=== PATIENT | female | born 1955 | race Caucasian/White ===

== ENCOUNTER 2025-07-29 07:42 | Emergency (ER) | payer MEDICARE, SELFPAY ==
--- OUTSIDE RECORDS SUMMARY | 2024-04-04 09:00 | XMS_ITS | Continuity of Care Document ---
Author Organization [facility] Address [address] [place] [address] Phone Care Team Providers Care Educational Adviser Name Role Phone Recknagel OD, Keith Unavailable Unavailable Allergies, Adverse Reactions, Alerts Substance Reaction Status Criticality No Known Allergies Active No Inform ation Medications Medication Instructions Dosage Effective Dates (start - stop) Status Comments estradiol 1 mg tablet Take 1 tablet ever y day - Active FIRST-Testosterone MC 2 % transdermal cream PRN - Active progesterone micronized 100 mg capsule Take 1 tablet at night - Active Procedures Procedure Date Refraction EST. Routine Exam Comprehensive 024 Refraction New Routine Exam Comprehensive 23 New Routine Exam Comprehensive 15 Advance Directives Directive Yes / No Effective Date File Name No Information Encounters Encounter Description Practice Location Reason(s) For Visit Diagnoses Date Provider Providers Copied on Encounter [facility], [address], [place], [place], [id number] , [place] tel:[phone] [facility] routine eye exam (chief complaint) Encounter for exam of eyes and vision w abnormal findingsPresbyop iaAge-related nuclear cataract, bilateral 4 Recknagel OD Keith. [address] [place], [address], [place]. tel:[phone] Referring Provider: Keith Keller OD Q, [address] [place], [address]. tel:[phone] [facility], [address], [place], [place], [id number] , [place] tel: [phone] [facility] comprehensive eye exam (chief complaint) Encounter for exam of eyes and vision w abnormal findingsPresbyop iaAge-related nuclear cataract, bilateral 3 Recknagel OD Keith. [address], [place], [address], [place]. tel:[phone] Referring Provider: Keith Recknagel OD Q, [address], [place], [address]. tel:[phone] [facility], [address], [place], [place], [id number] , [place] tel: [phone] [facility] routine exam (chief complaint) Eye & Vision ExaminationRefra ction Disorder NosSenile Nuclear Cataract 5 Agrawal OD David. [address], [place], [place], [id number], [place]. tel:[phone] Referring Provider: David Agrawal OD, [address], [place], [address] . tel:[phone] Family History Family Member Type Diagnosis Age At Onset No Information Payers Payer name Insurance type Covered libertarian ID Authordanaea kelly(s) [facility] [place] [employer] C are Claims CI [id number] Social History Type Description Quantity Date Captured Comments Alcohol Use Details No Caffeine Use Details No Tobacco Use Status Non-smoker Smoking Status Never smoker Non-Smoking Tobacco Use Details : No Details Available : No Details Available Sex Female Chief Complaint And Reason For Visit From encounter dated '04/04/2024 15:00'. routine eye exam (chief complaint). Description: The 68 year old female presents for routine eye exam in both eyes. Happy with vision and glasses from last year. Patient denies eye pain, flashes and floaters. Associated symptoms include: no changes in vision distance/near OU. Reason For Referral Reason For Referral No Information History Of Present Illness Encounter Date Complaint History Of Prese nt Illness routine eye exam The 68 year old female presents for routine eye exam in both eyes. Happy with vision and glasses from last year. Patient denies eye pain, flashes and floaters. Associated symptoms include: no changes in vision distance/near OU. comprehensive eye exam The 67 ye ar old female presents for comprehensive eye exam in both eyes. Patient reports decreased vision mostly at near OU. Patient denies eye pain, flashes and floaters. Last eye exam was 5 years ago. routine exam The 59 year old female presents for routine exam in both eyes. Patient reports blurred vision and difficulty reading with reading only rx with progression x 6 months. Last eye exam 3 years ago. Patient denies eye pain, flashes and floaters. Functional Status Date Functional Assessmen t No Information Instructions Date Instruction Additional Infor mation Encounter for examin ation of eyes and vision with abnormal findings, - Rx final glasses Rx. Monitor yearly for changes. Related to Encounter for examination of eyes and vision with abnormal findings Presbyopia, OU - Rx final glasses Rx. Monitor yearly for changes. Related to Presbyopia Age-related nuclear cataract, bilateral, OU - Educated pt on findings. No tx at this time as ADL's unaffected. Discussed possible effects of cataracts on vision and possible cataract surgery in future. Monitor yearly at this time or sooner if vision changes. Related to Age-related nuclear cataract, bilateral Patient education Related to Age -related nuclear cataract, bilateral Encounter for examin ation of eyes and vision with abnormal findings, - Rx final glasses Rx. Monitor yearly for changes. Related to Encounter for examination of eyes and vision with abnormal findings Presbyopia, OU - Rx final glasses Rx. Monitor yearly for changes. Related to Presbyopia Age-related nuclear cataract, bilateral, OU - Educated pt on findings. No tx at this time as ADL's unaffected. Discussed possible effects of cataracts on vision and possible cataract surgery in future. Monitor yearly at this time or sooner if vision changes. Related to Age-related nuclear cataract, bilateral Patient education Related to Age -related nuclear cataract, bilateral Routine Exam, Related to Routi ne Exam Refractive Error, OU - Patient was given up-to-date corrective glasses RX Related to Refractive Error Senile Nuclear Catar act, OU - Discussed catarcts with patient. No treatment required at this time. Recheck at annual eye exam. Related to Senile Nuclear Cataract Assessments Type Assessment Date No Information Patient Care Teams Name Effective Dates (start - stop) Status Members No Information
[2025-07-29 07:46] VITALS: BP 179/101; PULSE 92; RESP 16; TEMP 36.2; O2SAT 96
--- NOTE | 2025-07-29 07:50 | CT_ITS ---
WS: [id number] CTA HEAD AND NECK TECHNIQUE: Contrast enhanced CTA of the head and neck with coronal and sagittal reformatted images and maximum intensity projection (MIP) images. NASCET criteria utilized. CLINICAL INFORMATION: cva COMPARISON: None. DLP: 350.[address] scans at [facility] use at least one of these dose optimization techniques: automated exposure control; mA and/or kV adjustment per patient size (includes targeted exams where dose is matched to clinical indication); or iterative reconstruction. FINDINGS: RIGHT: No significant RIGHT ICA stenosis. RIGHT ICA is patent to the skull base. LEFT: LEFT common carotid artery is patent. No significant LEFT ICA stenosis. LEFT ICA is patent to the skull base. INTRACRANIAL CTA: LEFT dominant vertebral artery. Small but patent RIGHT vertebral artery. Basilar artery is patent. Persistent RIGHT MANAGER IMMUNOLOGY. Both ICAs are patent at the skull base. Normal vascularity to the DORIS and MCA territories bilaterally. No evidence of proximal flow-limiting stenosis. Proximal subclavian arteries are patent. Mild mucosal thickening in the paranasal sinuses. Mastoid air cells are well aerated. Normal parapharyngeal fat. CT/CT angio headneck* 88829/66749 IMPRESSION: 1. No significant cervical ICA stenosis. 2. No flow-limiting intracranial stenosis. 3. LEFT dominant vertebral artery. Both vertebral arteries are patent. Notified Marleny Lemus MD at 07/29/2025 8:47 AM.
--- NOTE | 2025-07-29 07:50 | XRR_ITS ---
PROCEDURE INFORMATION: Exam: XR Chest Exam date and time: 07/29/2025 8:02 AM Age: 69 years old Clinical indication: Other: Stroke like symptoms; Additional info: CVA TECHNIQUE: Imaging protocol: Radiologic exam of the chest. Views: 1 view. COMPARISON: No relevant prior studies available. FINDINGS: Lungs: Unremarkable. No consolidation. Pleural spaces: Unremarkable. No pleural effusion. No pneumothorax. Heart/Mediastinum: Unremarkable. No cardiomegaly. Bones/joints: Unremarkable. XR/XR chest 1V portable [id number] IMPRESSION: No acute findings.
--- NOTE | 2025-07-29 07:51 | CT_ITS ---
WS: [id number] CT HEAD NONCONTRAST HISTORY: Symptoms of acute stroke TECHNIQUE: Contiguous axial imaging performed through the brain. Bone and soft tissue windows. Sagittal and coronal reformats reviewed. All CT scans at [facility] use at least one of these dose optimization techniques: automated exposure control; mA and/or kV adjustment per patient size (includes targeted exams where dose is matched to clinical indication); or iterative reconstruction. DLP: 1261.19 mGy COMPARISON: None available. No acute intracranial hemorrhage, midline shift or mass effect. Mild atrophy with no prior infarcts. No significant white matter disease. There is also mild cerebellar atrophy. Ventricles: Normal size with no hydrocephalus. No inferior displacement of the cerebellar tonsils. Paranasal sinuses: Mild mucoperiosteal thickening in the RIGHT maxillary sinus. No air-fluid levels. Mastoid air cells: Well pneumatized. Calvarium and scalp: Skull is intact with no soft tissue edema or swelling. CT/CT head thrombolytic 80011 IMPRESSION: 1. No acute intracranial hemorrhage or edema. 2. Mild cerebral and cerebellar atrophy. 3. No prior infarct. Notified Marleny Lemus MD at 07/29/2025 8:05 AM.
--- OUTSIDE RECORDS SUMMARY | 2025-07-29 07:53 | XMS_ITS | Clinical Summary ---
Author Organization [facility] Address [address] [place] [address] Care Team Providers Care Tool Or Die Drawing Checker Name Role Phone DennisTato call Primary Care Provider [phone] Source Comments Some departments are not documenting in the electronic medical record. If you do not see the information that you expected, contact Release of Information in the Health Information Management department at [phone] for further assistance in locating additional records.[facility] Allergies Active Allergy Reactions Criticality Noted Date Comments Ragweed UNKNOWN Low 05/08/2025 Medications estradioL (ESTRACE) 2 mg tablet Take one tablet by mouth daily. Active progesterone, micronized (PROMETRIUM) 200 mg capsule TAKE 2 CAPSULES BY MOUTH EVERY NIGHT AT BEDTIME FOR 90 DAYS Active CONTRACT DESIGNER THYROID 30 mg (0.5 gr) tablet TAKE 1 TABLET BY MOUTH ONCE EVERY MORNING FOR 30 DAYS Active testosterone (FORTESTA) 10 mg/0.5 g per actuation transdermal gel every 24 hours. Active Active Problems Problem Noted Date Diagnosed Date Vaginal vault prolapse, posthysterectomy 025 Assessment & Plan (05/08/2025 3:47 PM CDT): - Management options were discussed for Stage 3 anterior-predominant post-hysterectomy vaginal prolapse including expectant management, conservative management (a pessary), and surgical management (obliterative vs reconstructive). - She is sexually active. - She has advanced prolapse and had a rapid recurrence after a chilkoot tissue repair in 08/2023. We discussed options for management. Given her relatively young age, physical activity, advanced prolapse, and rapid recurrence after a chilkoot tissue repair, she would likely benefit from a mesh-augmented surgery. We discussed her concerns and her sister's history. After further consideration, she would feel comfortable proceeding with mesh-augmented sacrocolpopexy. - A KAYLIE was signed to obtain records from her recent surgery at [facility] - She will follow up for urodynamics testing, cystourethroscopy and surgical consultation Urinary incontinence, mixed 05/08/2025 Assessment & Plan (05/08/2025 3:47 PM CDT): - Management options were discussed for mixed urinary incontinence including expectant, conservative (pelvic floor physical therapy, incontinence pessary), medical management and surgical management (synthetic midurethral sling, sacral neuromodulation, intravesicular botulinum toxin injections). - Behavioral modifications including monitoring fluid intake (goal 50-60 oz per day), avoidance of bladder irritants (caffeine, artificial sweeteners, acidic foods), timed voids, and avoidance of excessive fluid intake before bedtime were reviewed. - A urine culture is being sent today to rule out a UTI as a possible cause of her symptoms. - She will incorporate the behavioral modifications discussed above. - She has had some kind of incontinence procedure where her bladder was tacked to her tailbone . A KAYLIE was signed to obtain records. She will follow up for urodynamics testing, cystourethroscopy, and surgical consultation Encounters Date Type Department Care Team Description 07/10/2025 Documentation [facility]gy[facility]cology: [facility] [address] [place] [address] Carmel Peterson MD 05/11/2025 Results Follow-Up Urogynecology: [facility] [address] [place] [address] Tia Foote PA-C POC URINE DIPSTICK AUTO READ, CULTURE-URINE W/SENSITIVITY, URINALYSIS, MICROSCOPIC 05/08/2025 1:45 PM CDT Office Visit Urogynecology: [facility] [address] [place] [address] Carmel Peterson MD Vaginal vault prolapse, posthysterectomy (Primary Dx); Urinary incontinence, mixed; Hematuria, unspecified type 05/08/2025 Prep for Case Urogynecology: [facility] [address] [facility] [place] [address] Carmel Peterson MD Vaginal vault prolapse, posthysterectomy (Primary Dx) 05/08/2025 Travel from Last 3 Months Surgical History Surgery Date Site/Laterality Comments OOPHORECTOMY 2023 ovaries were removed during first pelvic floor surgery BLADDER SURGERY 08/2023 pelvic floor reconstruction HX HYSTERECTOMY 08/2023 performed with pelvic floor reconstruction HX CYSTOCELE REPAIR 08/2023 performed with pelvic floor reconstruction Social History Tobacco Use Types Packs/Day Years Used Date Smoking Tobacco: Never Passive Smoke Exposure: Past Smokeless Tobacco: Never Tobacco Cessation:Counseling Given: Not Answered Alcohol Use Standard Drinks/Week Comments Yes 2 (1 standard drink = 0.6 oz pur e alcohol) AUDIT-C Answer Date Recorded Q1: How often do you have a drink containing alc ohol? 2-3 times a week 05/08/2025 Q2: How many drinks containi ng alcohol do you have on a typical day when you are drinking? 1 or 2 05/08/2025 Q3: How often do you have si x or more drinks on one occasion? Never 05/08/2025 PHQ-2 Answer Date Recorded PHQ-2 Score 0 05/08/2025 Alcohol Use Answer Date Recorded Alcohol Use Yes 05/08/2025 Male: 9+ ounces (15+ Standard Drinks) per week T hreshold Not on file 05/08/2025 Female: 4.8+ ounces (8+ Standard Drinks) per wee k Threshold 1.2 05/08/2025 Comments No Sex and Gender Information Value Date Recorded Sex Assigned at Not on file Legal Sex Female 3:17 PM CDT Gender Identity Not on file Sexual Orientation Not on file Last Filed Vital Signs Vital Sign Reading Time Taken Comments Blood Pressure 132/89 05/08/2025 1:25 PM CDT Pulse 89 05/08/2025 1:25 PM CDT Temperature 36.6 C (97.9 F) 05/08/2025 1:25 PM CDT Respiratory Rate 20 05/08/2025 1:25 PM CDT Oxygen Saturation 100% 05/08/2025 1:25 PM CDT Inhaled Oxygen Concentration - - Weight 55.6 kg (122 lb 9.6 oz) 05/08/2025 1:25 P M CDT Height 154.9 cm (5' 1 ) 05/08/2025 1:25 PM CDT Body Mass Index 23.17 05/08/2025 1:25 PM CDT Plan of Treatment Upcoming Encounters Date Type Department Care Team (Latest Contact Info) Description 11/10/2025 8:00 AM CDT Hospital Encounter Operating Room: [address] [id number] Carmel Peterson MD [address] [place] [address] Vaginal vault prolapse, posthysterectomy 11/10/2025 8:00 AM CDT - 11/10/2025 1:50 PM CDT Surgery Operating Room: [address] [address] Carmel Peterson MD [address] [place] [address] COLPOPEXY, ROBOT-ASSISTED, LAPAROSCOPIC Scheduled Procedures Name Priority Associated Diagnoses Date/Ti me COLPOPEXY, ROBOT-ASSISTED, LAPAROSCOPIC Vaginal vault prolapse, posthysterectomy 11/10/2025 8:00 AM CDT COLPORRHAPHY, POSTERIOR, FOR RECTOCELE REPAIR Vaginal vault prolapse, posthysterectomy 11/10/2025 8:00 AM CDT CREATION, URETHRAL SLING, OPEN Vaginal vault prolapse, posthysterectomy 11/10/2025 8:00 AM CDT CYSTOURETHROSCOPY Vaginal vault prolapse, posthysterectomy 11/10/2025 8:00 AM CDT Health Maintenance Due Date Last Done Comments ADVANCE CARE PLANNING DISCUSSION AND DOCUMENTATION 1957 MEDICARE ANNUAL WELLNESS VISIT 1957 DTAP/TDAP VACCINES (1 - Tdap) 10/11/1975 HEPATITIS C SCREENING 10/11/1975 PHYSICAL (COMPREHENSIVE) EXAM 10/11/1975 BREAST CANCER SCREENING 1997 COLORECTAL CANCER SCREENING 2002 PNEUMOCOCCAL VACCINE AGE 50 AND OVER (1 of 1 - PCV) 10/11/2007 SHINGLES RECOMBINANT VACCINE (1 of 2) 10/11/2007 OSTEOPOROSIS SCREENING/MONITORING 2022 INFLUENZA VACCINE (#1) 2025 3, 05/24/2022 COVID-19 VACCINE (2 - 2024-2 6 season) 2025 07/15/2021 RSV VACCINE (50 years and Older/ Women) (1 - 1-dose 75+ series) 2032 DEPRESSION SCREENING Completed 05/08/2025 HPV VACCINES Aged Out No longer eligi ble based on patient's age to complete this topic MENINGOCOCCAL B VACCINE Aged Out No l onger eligible based on patient's age to complete this topic Procedures Procedure Name Priority Date/Time Associated Diagnosis Comments WI GERONIMO POST-VOIDING RESIDUAL URINE&/BLADDER CAP Routine 05/08/2025 1:45 PM CDT Vaginal vault prolapse, posthysterectomy URINALYSIS, MICROSCOPIC Routine 05/08/2025 1:40 PM CDT Hematuria, unspecified type HC CULTURE-URINE Routine 05/08/2025 1:28 PM CDT Urinary incontinence, mixed POC URINE DIPSTICK AUTO READ Routine 05/08/2025 Urinary incontinence, mixed from Last 3 Months Results * WI GERONIMO POST-VOIDING RESIDUAL URINE&/BLADDER CAP (05/08/2025 1:45 PM CDT) Narrative IN CLINIC - 05/08/2025 1:45 PM CDT Milli [place], TONJA 05/08/2025 3:48 PM Within 10 minutes of voiding, a bladder scan was performed and showed a PVR of 17 mL. us Carmel Peterson MD AMB URINARY ORDERABLES Nancy ta Result IN CLINIC * (ABNORMAL) URINALYSIS, MICROSCOPIC (05/08/2025 1:40 PM CDT) WBCs,UA 0 - 2 None, 0 - 2 /HPF 05/08/2025 2:00 PM CDT [facility] RBCs,UA 2 - 10(A) None, 0 - 2 /HPF 05/08/2025 2:00 PM CDT [facility] Mucous,UA Trace None, Trace /LPF 05/08/2025 2:00 PM CDT [facility] Squamous Epithelial Cells 5 - 10(A) None, 0 - 2 , 2 - 5 /HPF 05/08/2025 2:00 PM CDT [facility] Urine MID-STREAM URINE SPECIMEN / Unknown Non-blood Collection / Unknown 05/08/2025 1:40 PM CDT 05/08/2025 1:48 PM CDT us Carmel Peterson MD URINE ORDERABLES Final Resu lt [facility] [address] [place] [address], * (ABNORMAL) CULTURE-URINE W/SENSITIVITY (05/08/2025 1:28 PM CDT) Urine Culture ESCHERICHIA COLI(A) 05/10/2025 7:09 AM CDT [facility] MB Urine Culture 10,000-100,000 CFU/mL Urogenital and/or skin esvin isolated 05/10/2025 7:09 AM CDT [facility] MB Urine MID-STREAM URINE SPECIMEN / Unknown Non-blood Collection / Unknown 05/08/2025 1:28 PM CDT 05/08/2025 1:48 PM CDT Narrative Organism Antibiotic Method Susceptibility Escherichia coli Ampicillin PATRICA (MCG/ML), INTERPRETATION, PHX <=4: Susceptible Escherichia coli Ampicillin/Sulbactam PATRICA (MCG/M L), INTERPRETATION, PHX 2/1: Susceptible Escherichia coli Cefazolin PATRICA (MCG/ML), INTERPRETATION, PHX <=1: Susceptible Escherichia coli Cefepime PATRICA (MCG/ML), INTERPRETATION, PHX <=1: Susceptible Escherichia coli Cefoxitin PATRICA (MCG/ML), INTERPRETATION, PHX <=4: Susceptible Escherichia coli Ceftriaxone PATRICA (MCG/ML), INTERPRETATION, PHX <=1: Susceptible Escherichia coli Ciprofloxacin PATRICA (MCG/ML), INTERPRETATION, PHX <=0.25: Susceptible Escherichia coli Gentamicin PATRICA (MCG/ML), INTERPRETATION, PHX <=2: Susceptible Escherichia coli Levofloxacin PATRICA (MCG/ML), INTERPRETATION, PHX <=0.5: Susceptible Escherichia coli Nitrofurantoin PATRICA (MCG/ML), INTERPRETATION, PHX <=16: Susceptible Escherichia coli Piperacillin/Tazobactam PATRICA (MC G/ML), INTERPRETATION, PHX <=2/4: Susceptible Escherichia coli Tobramycin PATRICA (MCG/ML), INTERPRETATION, PHX <=2: Susceptible Escherichia coli Trimethsulfa PATRICA (MCG/ML), INTERPRETATION, PHX <=0.5/9.5: Susceptible Carmel Peterson MD MICROBIOLOGY ORDERABLES Fin al Result Performing Organization Address City/[facility] Co de Phone Number [facility] PATH AND LAB MEDICINE [address] [address], * (ABNORMAL) POC URINE DIPSTICK AUTO READ (05/08/2025) Urine Glucose POC Negative Negative IN CLINIC Urine Bilirubin POC Negative Negative IN CLINIC Urine Ketone POC Negative Negative IN CLINIC Urine Specific [place] POC 1.020 1.003 - 1.035 IN CLINIC Urine Blood POC Trace(A) Negative IN CLINIC Urine PH POC 6.0 5 - 8 IN CLINIC Urine Protein POC Negative Negative IN CLINIC Urine Urobilinogen POC 0.2 0.2, 1.0 IN CLINIC Urine Nitrite POC Negative Negative IN CLINIC Urine Leukocytes POC Negative Negative IN CLINIC Urine Color POC Yellow Yellow, Colorless, Pale Yellow, Natalie IN CLINIC Urine Turbidity POC Slightly Cloudy(A) Clear IN CLINIC Urine (Clean Catch) 05/08/2025 Carmel Peterson MD POINT OF CARE TESTING Final Result IN CLINIC from Last 3 Months Insurance [facility] MEDICARE REPLACEMENT - LIFE1 Care Teams Tool Or Die Drawing Checker Relationship Specialty Start Date End Date Tato Collins DO [address] [place] [address] PCP - General Family Medicine 02/26/25
--- OUTSIDE RECORDS SUMMARY | 2025-07-29 07:53 | XMS_ITS | Patient Health Record ---
Author Organization [facility] Billing Info Address [address] [place] [id number] Phone [phone] Care Team Providers Care Hotel Reservationist Name Role Phone Tato Collins DO Primary Care Provider Unavailab ANNY Bermudez DO Unavailable [phone] Allergies Allergen (clinical drug ingredient) Drug/Non Drug Allergy documented on EMR Reaction Allergy Type Onset Date Status Ragweed Unknown Allergy Active Reason For Referral No Information Medications Medication SIG (Take, Route, Frequency, Duration) Notes Start Date End Date Diagnosis (ICD Code) Status Flomax 0.4 MG Capsule 1 capsule Orally Once a day; Duration: 30 day(s) 3 Not-Taking Progesterone 100 MG Capsule as directed Orally unsure of strength Active Testosterone 10 MG/ACT (2%) Gel 1 pump to skin in the morning to the thighs Transdermal Once a day unsure of strength Active Estradiol 1 MG Tablet 1 tablet Orally Once a day; Duration: 30 day(s) unsure of strength Active Immunizations Status Vaccine Route Administration Date Visit Date Comments Administered zFLU 4V (FLUARIX DALE D), 6 MO+, NO PRES - ALL PAYORS Unknown 08/21/2022 Social History Tobacco Use: Social History Observation Description Date Details (start date - stop date) Never Smoker NA - NA Sex Observation Social History Observation Description Sex Observation Female Social History Social History Social Info Question Answer Notes Tobacco Status: Patient is a never smoker Alcohol Use: Patient uses alcohol Drinks per occasion: 1 Additional Details Category Social Info Options Details Social History Marital Status: Problems No Known Problems Plan Of Treatment No Information Insurance Providers Payer Name Payer Address Payer Phone Subscriber Number Group Number Insured Name Patient Relationship to Insured Coverage Start Date Coverage End Date [facility] MEDIC[facility] [id number] [address] [address] [place], [place] [id number] Rossana Arriola Self - patient is the insured [address] [employer] [address] [place], [place] [phone] Estefaniabeverly Rossana Self - patient is the insured Medical (General) History Surgical History Surgery Date(Month/Year) R wrist repair 2018 [facility] hysterectomy, anterio r/posterior colporrhaphy with possible graft. 08/2022 Hospitalization History Reason Date(Month/Year) Childbirth see surgical hx
--- OUTSIDE RECORDS SUMMARY | 2025-07-29 07:53 | XMS_ITS | Encounter Summary ---
Author Organization [facility] Address [address] [place] [address] Care Team Providers Care Emt Dispatcher Name Role Phone Tato Collins Primary Care Provider [phone] Encounter Details Date Type Department Care Team ([facility] Contact Info) Description 05/08/2025 Prep for Case Urogynecology: [facility] [address] [facility], [place] [address] Carmel Peterson MD [address] [place] [address] Vaginal vault prolapse, posthysterectomy (Primary Dx) Social History Tobacco Use Types Packs/Day Years Used Date Smoking Tobacco: Never Passive Smoke Exposure: Past Smokeless Tobacco: Never Alcohol Use Standard Drinks/Week Comments Yes 2 [...] on file Sexual Orientation Not on file documented as of this encounter Functional Status * Does the patient have a hearing impairment: Answer Date of Assessment Author No 05/08/2025 1:24 PM CDT Cesar Lat rallaura * Does the patient have a visual impairment: Answer Date of Assessment Author Yes 05/08/2025 1:24 PM CDT Cesar Lat ralle * Does the patient have impaired ambulation: Answer Date of Assessment Author No 05/08/2025 1:24 PM CDT Cesar Lat rallaura * Does the patient have an activity of daily living (ADL) impairment: Answer Date of Assessment Author No 05/08/2025 1:24 PM CDT Cesar Lat ralle * Does the patient have an instrumental activity of daily living (IADL) impairment: Answer Date of Assessment Author No 05/08/2025 1:24 PM CDT Cesar Lat feroz documented as of this encounter Mental Status * Does the patient have a cognitive impairment: Answer Entry Date Author No 05/08/2025 1:24 PM CDT Jerson Guerrero documented in this encounter Ordered Prescriptions Prescription Sig Dispense Quantity Refills Last Filled Start Date End Date PRESURGERY KIT CIndications:ERAS pre-surgical preparation Use as directed. CHG wipes (12) and Ensure PreSurgery (3). Indications: ERAS pre-surgical preparation 1 kit 05/08/2025 documented in this encounter Plan of Treatment Upcoming Encounters Date Type Department Care Team (Latest Contact Info) Description 11/10/2025 8:00 AM CDT Hospital Encounter Operating Room: [facility] [address] [facility] [address] [place] [address] Carmel Peterson MD [address] [place], [place] [phone] Vaginal vault prolapse, posthysterectomy 11/10/2025 8:00 AM CDT - 11/10/2025 1:50 PM CDT Surgery [facility] [address] [facility] [address] [place] [phone] Carmel Peterson MD [address] [place] [address] COLPOPEXY, ROBOT-ASSISTED, LAPAROSCOPIC Scheduled Procedures Name Priority Associated Diagnoses Date/Ti me COLPOPEXY, ROBOT-ASSISTED, LAPAROSCOPIC Vaginal vault prolapse, posthysterectomy 11/10/2025 8:00 AM CDT COLPORRHAPHY, POSTERIOR, FOR RECTOCELE REPAIR Vaginal vault prolapse, posthysterectomy 11/10/2025 8:00 AM CDT CREATION, URETHRAL SLING, OPEN Vaginal vault prolapse, posthysterectomy 11/10/2025 8:00 AM CDT CYSTOURETHROSCOPY Vaginal vault prolapse, posthysterectomy 11/10/2025 8:00 AM CDT documented as of this encounter Visit Diagnoses Diagnosis Vaginal vault prolapse, posthysterectomy- Primary Prolapse of vaginal vault after hysterectomy Vaginal vault prolapse, posthysterectomy Prolapse of vaginal vault after hysterectomy documented in this encounter Orders Case Request Count Last Ordered Date First Orde red Date CASE REQUEST FOR ERAS PATIENTS 1 05/08/2025 documented in this encounter Additional Health Concerns Assessment Noted Time A fall risk assessment has been complete d for the patient 05/08/2025 1:24 PM CDT PHQ-2 Depression Total Score: 0 05/08/20 25 1:24 PM CDT documented as of this encounter Care Teams Emt Dispatcher Relationship Specialty Start Date End Date Tato Collins DO [address] [facility] [address] [place] [address] PCP - General Family Medicine 02/26/25 documented as of this encounter
--- OUTSIDE RECORDS SUMMARY | 2025-07-29 07:53 | XMS_ITS | Patient Health Record ---
Author Organization [facility] Address [address] [place] [address] Care Team Providers Care Tape Recording Machine Operator Name Role Phone Avni Mejia Primary Care Provider Unavailabl e Paige Diaz Unavailable [phone] Tato Collins Unavailable Unavailable Reason For Referral Reason Referral to Dr. Rehan kelly for cystocele Diagnosis 1 Postmenopausal bleed ing (N95.0) Diagnosis 2 Female bladder prola pse (N81.10) Diagnosis 3 Cystocele (N81.10) Diagnosis 4 Enterocele (K46.9) Referral Organization [facility] Referring Provider First Name Paige Referring Provider Last Name Emily Referring Provider Speciality OB - Gynec ology Referred Provider [facility],, Urogynecology a nd Female Pelvic Medicine Referral Priority Routine Medications Medication SIG (Take, Route, Frequency, Duration) Notes Start Date End Date Status Estradiol 2 MG Tablet TAKE 1 TABLET BY M OUTH ONCE EVERY DAY Oral; Duration: 90 Days Active Testosterone Active Multi-Vitamin Active Fish Oil Active Progesterone 200 MG Capsule Oral; Duration: 90 Days 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 No Household: Social Info Question Answer Notes Household Marital status: Problems Problem Type SNOMED Code ICD Code Onset Dates Problem Status W/U Status Risk Notes Problem Cystocele (456195933) Cystocele (N81.10) Active confirmed Problem Postmenopausal bleeding (60552553) Postmenopausal bleeding (N95.0) Active confirmed Problem Osteopenia (357980545) Osteopenia (M85.80) Active confirmed Problem Endometrium thickened (finding) (286924140) Endometrial thickening on ultra sound (R93.8) Active confirmed Problem Midline cystocele (555569060) Female bladder prolapse (N81.10) Active confirmed Vital Signs Heart Rate 88 /min 02/16/2025 Blood pressure diastolic 95 mm Hg 02/16/2025 Height 5 ft 1 in in 02/16/2025 Blood pressure systolic 126 mm Hg 02/16/2025 Weight 122 lbs 02/16/2025 BMI 23.05 kg/m2 02/16/2025 Encounters Encounter Location Date Provider Diagnosis [facility] [address] [facility] [address] [place], [place] [phone] 02/16/2025 Paige Diaz Cystocele N81.10 and Enterocele K46.9 Assessments Encounter Date Diagnosis (ICD Code) Assessment Notes Treatment Notes Treatment Clinical Notes Section Notes 02/16/2025 Cystocele (ICD-10 - N81.10) I discussed the nature of her defects. Since she failed so quickly, I rec referral to a urogynocologist because she made need a vaginal vault suspension and bladder repair. She is agreeable with this plan 02/16/2025 Enterocele (ICD-10 - K46.9) 02/16/2025 Other Pelvic exam don e with concession manager in room Plan Of Treatment No Information Insurance Providers Payer Name Payer Address Payer Phone Subscriber Number Group Number Insured Name Patient Relationship to Insured Coverage Start Date Coverage End Date [facility] Medicare Avantage Choice [address] [address] [place] [phone] [id number] Rossana Arriola Self - patient is the insured Medical (General) History Medical History History ICD Code Osteopenia M85.80 vision problems (glasses) abnormal pap smear (precancereous cells had cryo in ) Endometrial thickening on ultra sound R9 3.8 Surgical History Surgery Date(Month/Year) cryosurgery wisdom teeth extraction 1974 TOTAL HYSTERECTOMY HYSTEROSCOPY, ABLATION REMOVAL OF OVARY(S) pelvic floor repair, [facility] 08/2022
--- OUTSIDE RECORDS SUMMARY | 2025-07-29 07:54 | XMS_ITS | Continuity of Care Document ---
Author Organization [facility] [facility], Main Office Address [address] [facility] [address] [place] [address] Assessment No assessment recorded. Plan of Treatment Reminders Order Date Submit Date Provider Last Modified By Organization Details Last Modified Time Details Appointments None recorded . Lab CBC w/ auto diff 025 05/15/20 [place] [facility], [address] [place], [address], 5 23:07:08 lipid panel, serum 025 05/15/20 [place] [facility], [address] [place], [address], 5 23:07:10 CMP, serum or plasma 025 05/15/20 [place] [facility], [address] [place], [address], 5 23:07:09 Referral None recorded . Procedures None recorded . Surgeries None recorded . Imaging None recorded . Medication Orders None recorded . Patient TargetsNo targets recorded. Patient Instructions Encounter Date Encounter Id Patient Instructions Last Modified By Organization Details Last Modified Time 05/15/2025 [id number] The patient has her mammogram scheduled Colorectal cancer screen up to date [email or web address] Not available 05/15/2025 10:09:13 Reason for Referral None Reported. Results Created Date Observation Date Name Description Value Unit Range Abnormal Flag Note LastModifiedBy Organization Detail LastModifiedTime 05/18/2005/18/2025 CBC WITH DIFFE RENTI AL/PL ATELE T WBC 6.9 x10e3 /uL 3.4-10 .8 normal Not Available [facility] ([facility]) [address] [place], [address], 05/18/2025 23:07:08 05/18/20 25 05/18/2025 CBC WITH DIFFE RENTI AL/PL ATELE T RBC 4.06 x10e6 /uL 3.77-5 .28 normal Not Available [facility] ([facility]) [address] [place], [address], 05/18/2025 23:07:08 05/18/20 25 05/18/2025 CBC WITH DIFFE RENTI AL/PL ATELE T hemoglobin 13.3 g/dL 11.1-1 5.9 normal Not Available [facility] ([facility]) [address] [place], [address], 05/18/2025 23:07:08 05/18/20 25 05/18/2025 CBC WITH DIFFE RENTI AL/PL ATELE T hematocrit 38.9 % 34.0-4 6.6 normal Not Available [facility] ([facility]) [address] [place], [address], 05/18/2025 23:07:08 05/18/20 25 05/18/2025 CBC WITH DIFFE RENTI AL/PL ATELE T MCV 96 fL 79-97 normal Not Available [facility] ([facility]) [address] [place], [address], 05/18/2025 23:07:08 05/18/20 25 05/18/2025 CBC WITH DIFFE RENTI AL/PL ATELE T MCH 32.8 pg 26.6-3 3.0 normal Not Available [facility] ([facility]) [address] [place], [address], 05/18/2025 23:07:08 10/20/05/18/2025 CBC WITH DIFFE RENTI AL/PL ATELE T MCHC 34.2 g/dL 31.5-3 5.7 normal Not Available [facility] ([facility]) [address] [place], [address], 05/18/2025 23:07:08 05/18/20 25 05/18/2025 CBC WITH DIFFE RENTI AL/PL ATELE T RDW 12.5 % 11.7-1 5.4 Not Available [facility] ([facility]) [address] [place], [address], 05/18/2025 23:07:08 05/18/2005/18/2025 CBC WITH DIFFE RENTI AL/PL ATELE T platelets 370 x10e3 /uL 150-45 0 normal Not Available [facility] ([facility]) [address] [place], [address], 05/18/2025 23:07:08 05/18/20 25 05/18/2025 CBC WITH DIFFE RENTI AL/PL ATELE T neutrophils 50 % not estab. normal Not Available [facility] ([facility]) [address] [place], [address], 05/18/2025 23:07:08 05/18/20 25 05/18/2025 CBC WITH DIFFE RENTI AL/PL ATELE T lymphs 40 % not estab. normal Not Available [facility] ([facility]) [address] [place], [address], 05/18/2025 23:07:08 05/18/20 25 05/18/2025 CBC WITH DIFFE RENTI AL/PL ATELE T monocytes 6 % not estab. normal Not Available [facility] ([facility]) [address] [place], [address], 05/18/2025 23:07:08 05/18/20 25 05/18/2025 CBC WITH DIFFE RENTI AL/PL ATELE T eos 3 % not estab. normal Not Available [facility] ([facility]) [address] [place], [address], 05/18/2025 23:07:08 05/18/20 25 05/18/2025 CBC WITH DIFFE RENTI AL/PL ATELE T basos 1 % not estab. normal Not Available [facility] ([facility]) [address] [facility], [place], [address], 05/18/2025 23:07:08 05/18/20 25 05/18/2025 CBC WITH DIFFE RENTI AL/PL ATELE T immature cells BILINGUAL MEDICAL RECEPTIONIST Not Available [facility] ([facility]) [address] [place], [address], 05/18/2025 23:07:08 05/18/20 25 05/18/2025 CBC WITH DIFFE RENTI AL/PL ATELE T neutrophils (absolute) 3.4 x10e3 /uL 1.4-7. 0 normal Not Available [facility] ([facility]) [address] [place], [address], 05/18/2025 23:07:08 05/18/20 25 05/18/2025 CBC WITH DIFFE RENTI AL/PL ATELE T lymphs (absolute) 2.8 x10e3 /uL 0.7-3. 1 normal Not Available [facility] ([facility]) [address] [place], [address], 05/18/2025 23:07:08 05/18/20 25 05/18/2025 CBC WITH DIFFE RENTI AL/PL ATELE T monocytes(ab solute) 0.4 x10e3 /uL 0.1-0. 9 normal Not Available [facility] ([facility]) [address] [place], [address], 05/18/2025 23:07:08 05/18/20 25 05/18/2025 CBC WITH DIFFE RENTI AL/PL ATELE T eos (absolute) 0.2 x10e3 /uL 0.0-0. 4 normal Not Available [facility] ([facility]) [address] [place], [address], 05/18/2025 23:07:08 05/18/20 25 05/18/2025 CBC WITH DIFFE RENTI AL/PL ATELE T baso (absolute) 0.1 x10e3 /uL 0.0-0. 2 normal Not Available [facility] ([facility]) [address] [facility], [place], [address], 05/18/2025 23:07:08 05/18/20 25 05/18/2025 CBC WITH DIFFE RENTI AL/PL ATELE T immature granulocytes 0 % not estab. Not Available [facility] ([facility]) [address] [place], [address], 05/18/2025 23:07:08 05/18/20 25 05/18/2025 CBC WITH DIFFE RENTI AL/PL ATELE T immature grans (abs) 0.0 x10e3 /uL 0.0-0. 1 Not Available [facility] ([facility]) [address] [place], [address], 05/18/2025 23:07:08 05/18/20 25 05/18/2025 CBC WITH DIFFE RENTI AL/PL ATELE T NRBC BILINGUAL MEDICAL RECEPTIONIST Not Available [facility] ([facility]) [address] [place], [address], 05/18/2025 23:07:08 05/18/20 25 05/18/2025 CBC WITH DIFFE RENTI AL/PL ATELE T hematology comments: BILINGUAL MEDICAL RECEPTIONIST Not Available [facility] ([facility]) [address] [place], [address], 05/18/2025 23:07:08 05/18/20 25 05/18/2025 COMP. METAB OLIC PANEL (14) glucose 115 mg/dL 70-99 above high normal Not Available [facility] ([facility]) [address] [place], [address], 05/18/2025 23:07:09 05/18/20 25 05/18/2025 COMP. METAB OLIC PANEL (14) BUN 13 mg/dL 8-27 normal Not Available [facility] ([facility]) [address] [place], [address], 05/18/2025 23:07:09 05/18/20 25 05/18/2025 COMP. METAB OLIC PANEL (14) creatinine 0.73 mg/dL 0.57-1 .00 normal Not Available [facility] ([facility]) [address] [place], [address], 05/18/2025 23:07:09 05/18/20 25 05/18/2025 COMP. METAB OLIC PANEL (14) eGFR 90 mL/mi n/1.7 3 >59 normal Not Available [facility] ([facility]) [address] [place], [address], 05/18/2025 23:07:09 05/18/20 25 05/18/2025 COMP. METAB OLIC PANEL (14) BUN/creatini ne ratio 18 12-28 normal Not Available [facility] ([facility]) [address] [place], [address], 05/18/2025 23:07:09 05/18/20 25 05/18/2025 COMP. METAB OLIC PANEL (14) sodium 136 mmol/ L 134-14 4 normal Not Available [facility] ([facility]) [address] [place], [address], 05/18/2025 23:07:09 05/18/20 25 05/18/2025 COMP. METAB OLIC PANEL (14) potassium 4.2 mmol/ L 3.5-5. 2 normal Not Available [facility] ([facility]) [address] [place], [address], 05/18/2025 23:07:09 05/18/20 25 05/18/2025 COMP. METAB OLIC PANEL (14) chloride 102 mmol/ L 96-106 normal Not Available [facility] ([facility]) [address] [place], [address], 05/18/2025 23:07:09 05/18/20 25 05/18/2025 COMP. METAB OLIC PANEL (14) carbon dioxide, total 20 mmol/ L 20-29 normal Not Available [facility] ([facility]) [address] [place], [address], 05/18/2025 23:07:09 05/18/20 25 05/18/2025 COMP. METAB OLIC PANEL (14) calcium 9.5 mg/dL 8.7-10 .3 normal Not Available [facility] ([facility]) [address] [place], [address], 05/18/2025 23:07:09 05/18/20 25 05/18/2025 COMP. METAB OLIC PANEL (14) protein, total 6.7 g/dL 6.0-8. 5 normal Not Available [facility] ([facility]) [address] [place], [address], 05/18/2025 23:07:09 05/18/20 25 05/18/2025 COMP. METAB OLIC PANEL (14) albumin 4.2 g/dL 3.9-4. 9 normal Not Available [facility] ([facility]) [address] [place], [address], 05/18/2025 23:07:09 05/18/20 25 05/18/2025 COMP. METAB OLIC PANEL (14) globulin, total 2.5 g/dL 1.5-4. 5 Not Available [facility] ([facility]) [address] [facility] [place], [address], 05/18/2025 23:07:09 05/18/20 25 05/18/2025 COMP. METAB OLIC PANEL (14) bilirubin, total 0.4 mg/dL 0.0-1. 2 normal Not Available [facility] ([facility]) [address] [place], [address], 05/18/2025 23:07:09 05/18/20 25 05/18/2025 COMP. METAB OLIC PANEL (14) alkaline phosphatase 60 IU/L 49-135 normal Not Available [facility] ([facility]) [address] [place], [address], 05/18/2025 23:07:09 05/18/20 25 05/18/2025 COMP. METAB OLIC PANEL (14) AST (SGOT) 16 IU/L 0-40 normal Not Available [facility] ([facility]) [address] [place], [address], 05/18/2025 23:07:09 05/18/20 25 05/18/2025 COMP. METAB OLIC PANEL (14) ALT (SGPT) 10 IU/L 0-32 normal Not Available [facility] ([facility]) [address] [place], [address], 05/18/2025 23:07:09 05/18/20 25 05/18/2025 LIPID PANEL cholesterol, total 139 mg/dL 100-19 9 normal Not Available [facility] ([facility]) [address] [place], [address], 05/18/2025 23:07:10 05/18/20 25 05/18/2025 LIPID PANEL triglyceride s 123 mg/dL 0-149 normal Not Available [facility] ([facility]) [address] [place], [address], 05/18/2025 23:07:10 05/18/20 25 05/18/2025 LIPID PANEL HDL cholesterol 58 mg/dL >39 normal Not Available [facility] ([facility]) [address] [facility], [place], [address], 05/18/2025 23:07:10 05/18/20 25 05/18/2025 LIPID PANEL VLDL cholesterol luz 22 mg/dL 5-40 Not Available [facility] ([facility]) [address] [facility], [place], [address], 05/18/2025 23:07:10 05/18/20 25 05/18/2025 LIPID PANEL LDL chol calc ([facility]) 59 mg/dL 0-99 Not Available [facility] ([facility]) [address] [facility], [place], [address], 05/18/2025 23:07:10 05/18/20 25 05/18/2025 LIPID PANEL LDL calc comment: BILINGUAL MEDICAL RECEPTIONIST Not Available [facility] ([facility]) [address] [facility], [place], [address], 05/18/2025 23:07:10 05/20/20 25 05/20/2025 MAMMO , 3D rende ring No observ ation record ed. [email or web address] [facility] Dept [address], [place], [address], 05/25/2025 13:42:12 05/29/2005/29/2025 MAMMO , scree deb, bilat eral No observ ation record ed. [email or web address] [facility] [address], [place], [address], 06/01/2025 10:43:32 05/29/2005/29/2025 MAMMO , diagn ostic , unila teral No observ ation record ed. [facility] [address], [place], [address], 06/01/2025 10:43:33 Result Notes None recorded. Problems Name Problem SNOMED Code Status Onset Date Resolution Date Notes Provider Name and Address Organization Details Recorded Time Upper respiratory infection 26254975 Active 2023 PABLITO BRO, STORMY [address], [place], [address], [facility] 4 16:45:07 Cough 42387904 Active 2023 PABLITO BRO NP [address], [place], [address], [facility] 4 16:45:26 Fatigue 54171839 Active 2024 Lilibeth Torres NP [address], [place], [address], [facility] 5 10:40:15 Menopausal syndrome 637781176 Active 2024 Lilibeth Torres NP [address], [place], [address], [facility] 5 10:40:16 Notes:Some problems listed i n Document: #[id number] could not be added to this patient's chart. Please review this document and add these problems to the patient's chart manually as needed. Problem Notes None recorded. Procedures Surgical History Date Name Laterality Status Provider Name and Address Organization Details Recorded Time 09/11/19 23 reconstruction of pelvic floor completed Maryann Morejon [facility] 07/04/2023 15:39:54 07/30/19 16 Date of Last Pap Smear completed [facility] 10/04/2016 09:44:59 Imaging Results None recorded. Procedure Notes None recorded. Medical Equipment None Reported. Allergies Allergen ID Allergen Name Allergen Category Reaction Reaction Severity Criticality Documentation Date Start Date Code Code System Note Provider Name and Address Organization Details Recorded Time Bactrim medicatio n nausea severe low 07/04/2023 63039 9 RxNorm Maryann Morejon [facility] 3 17:58:49 4258 ragweed pollen environme nt Not available Not available Not available [facility]2016[facility] 09:[facility] Medications Name Sig Start Date Stop Date Status Note LastModified by Organization Details LastModified Time Bernice Randall (lipoderm) Topi-Click 20mg/gm 1 click nightly to external vaginal area 03/08 completed Called into [facility] 01/03/21 Not Available Not Available Not Available Testostero olimpia Topi-Click Vanishing Cream 20mg/gm APPLY 1 CLICK NIGHTLY TO EXTERNAL VAGINAL AREA 2019 active Not Available Not Available Not Avai lable compounded medication APPLY 1 CLICK (1/4 GRAM) TO EXTERNAL VAGINAL AREA DAILY. AVOID CONTACT FOR 4 HOURS. NEEDS APPT 05/30 completed Not Available Not Available Not Available compounded medication APPLY 1 CLICK (1/4 GRAM) TO EXTERNAL VAGINAL AREA DAILY. AVOID CONTACT FOR 4 HOURS. NEEDS APPT active Not Available Not Available No t Available compounded medication APPLY 1 CLICK (1/4 GRAM) EXTERNAL LY TO VAGINAL AREA NIGHTLY. AVOID CONTACT FOR 4 HOURS. active Not Available Not Available No t Available compounded medication Apply 1 click to external vaginal area daily 03/08 completed Not Available Not Available Not Available compounded medication APPLY 1 CLICK (1/4 gram=5mg ) TO INNER THIGH OR EXTERNAL GENITALI A ONCE DAILY. AVOID CONTACT FOR 4 HOURS. 2024 active Not Available Not Available Not Avai lable compounded medication APPLY 1 CLICK (1/4 GRAM) TO EXTERNAL VAGINAL AREA DAILY. AVOID CONTACT FOR 4 HOURS. NEEDS APPT active Not Available Not Available No t Available compounded medication APPLY 1 CLICK (1/4 GRAM) TO EXTERNAL VAGINAL AREA DAILY. AVOID CONTACT FOR 4 HOURS. NEEDS APPT 05/30 completed Not Available Not Available Not Available azithromyc in 250 mg tablet TAKE 2 TABLETS BY MOUTH TODAY, THEN TAKE 1 TABLET DAILY FOR 4 DAYS DIRECTED 05/15 completed Not Available Not Available Not Available hydrocodon e 5 mg-acetami nophen 325 mg tablet 11/27 completed Not Available Not Available Not Available prednisone 20 mg tablet 1 tab bid 11/27 completed Not Available Not Available Not Available prednisone 5 mg tablet Daily tapering dose 6-5-4-3- 2-1 stop 01/28 completed Not Available Not Available Not Available promethazi ne 6.25 mg-codeine 10 mg/5 mL syrup take 5 ML BY MOUTH EVERY 6 HOURS NEEDED 07/28 completed Not Available Not Available Not Available acetaminop hen 500 mg tablet TAKE 2 TABLETS BY MOUTH EVERY 8 HOURS 07/04 completed Not Available Not Available Not Available estradiol 1 mg tablet Take one tab WITH one 2mg tab, for total daily dose of 3mg 2024 active Not Available Not Available Not Avai lable progestero ne micronized 200 mg capsule TAKE 2 CAPSULES BY MOUTH EVERY NIGHT AT BEDTIME FOR 90 DAYS active Not Available Not Available No t Available olive oil 2 tbsp daily 05/30 completed Not Available Not Available Not Available estradiol 2 mg tablet Take one tab WITH one 1mg tab, for total daily dose of 3mg 2024 active Not Available Not Available Not Avai lable codeine 10 mg-guaifen esin 100 mg/5 mL oral liquid Take 5 mL every 4-6 hours by oral route as needed for 7 days. 08/01 completed Not Available Not Available Not Available estradiol 0.5 mg tablet TAKE 1 TABLET BY MOUTH EVERY DAY TAKE WITH 1MG TAB TO MAKE 1.5 MG//APPT NEEDED FOR FURTHER REFILLS 03/08 completed Not Available Not Available Not Available azelastine 137 mcg (0.1 %) nasal spray SPRAY 2 SPRAYS INTO EACH NOSTRIL TWICE A DAY NEEDED active Not Available Not Available No t Available ibuprofen 600 mg tablet TAKE 1 TABLET BY MOUTH EVERY 8 HOURS 05/30 completed Not Available Not Available Not Available methylpred nisolone 4 mg tablets in a dose pack TAKE 6 TABLETS ON DAY 1 DIRECTED ON PACKAGE AND DECREASE BY 1 TAB EACH DAY FOR A TOTAL OF 6 DAYS 05/15 completed Not Available Not Available Not Available Tussionex Pennkineti c ER 10 mg-8 mg/5 mL suspension ,extended release 1 tsp bid 11/27 completed Not Available Not Available Not Available ondansetro n 4 mg disintegra ting tablet Place 2 tablets twice a day by translin gual route as needed. 06/13 completed Not Available Not Available Not Available progestero ne micronized 100 mg capsule TAKE 1 CAP DAILY WITH THE 200 MG TO EQUAL 300 MGNEED S APPT 05/30 completed Not Available Not Available Not Available amoxicilli n 875 mg-potassi um clavulanat e 125 mg tablet TAKE 1 TABLET BY MOUTH EVERY 12 HOURS FOR 10 DAYS 05/30 completed Not Available Not Available Not Available Benadryl Allergy 25 mg tablet Take 1 tablet every day by oral route as needed. active allergi es/slee p Not Available Not Available Not Available nitrofuran toin monohydrat e/macrocry stals 100 mg capsule TAKE 1 CAPSULE BY MOUTH EVERY 12 HOURS WITH FOOD FOR 7 DAYS FOR GENITOUR INARY TRACT INFECTIO NS. active Not Available Not Available No t Available Vitamin C 2,000 mg at noon 03/08 completed Not Available Not Available Not Available betaine 1-2 capsules before meals 03/08 completed Not Available Not Available Not Available DHEA 50mg daily 05/30 completed Not Available Not Available Not Available Vitamin D 5,000 units daily/50 mcg active Not Available Not Available No t Available [place]-3 3,000 mg daily active Not Available Not Available No t Available multivitam in one daily active Not Available Not Available No t Available collagen 6mg 01/22 completed Not Available Not Available Not Available compounded medication 1 capsuls at bedtime 07/04 completed Not Available Not Available Not Available compounded medication 2 at noon 09/30 completed Not Available Not Available Not Available compounded medication Twice daily 09/30 completed Not Available Not Available Not Available compounded medication 1 scoop daily for 2 months 11/04 completed Not Available Not Available Not Available Probiotic 50 billion daily 07/04 completed Not Available Not Available Not Available BILINGUAL MEDICAL RECEPTIONIST Thyroid 30 mg tablet TAKE 1 TABLET BY MOUTH ONCE EVERY MORNING FOR 30 DAYS 05/22 completed Not Available Not Available Not Available BILINGUAL MEDICAL RECEPTIONIST Thyroid 60 mg tablet Take 1 tablet every day by oral route in the morning for 90 days. 2024 active Not Available Not Available Not Avai lable melatonin 10 mg tablet PRN active Not Available Not Available Not Available Vitamin B12 3000mcg active Not Available Not Available Not Available Shingrix (PF) 50 mcg/0.5 mL intramuscu lar suspension , kit 11/27 completed Not Available Not Available Not Available Fluzone Quad (PF) 60 mcg (15 mcg x 4)/0.5 mL IM syringe PHARMACY ADMINIST ERED DELTOID 07/28 completed Not Available Not Available Not Available Vitals Date Recorded Body height Body temperature Heart rate Body mass index (BMI) Body weight Oxygen saturation Systolic And Diastolic Provider Name and Address Organization Details Last Updated DateTime 5 157.48 cm 98.2 [degF] 73 /min 22.3 kg/m2 86281.2 7 g 98 % 149/83 mm[Hg] Rebeca Vasquez [facility] 5 09:30:13 Social History Question Answer Notes LastModified by Organizat ion Details LastModified Time Tobacco Smoking Status Never Smoker Maryann vang [facility] 07/04/2023 15:39:11 Do You Have An Advance Directive? Yes Information not available 07/04/2023 What Is Your Level Of Caffeine Consumption? Moderate Coffee Information not available 07/04/2023 What Was The Date Of Your Most Recent Tobacco Screening? 07/04/2023 Information not available 07/04/2023 Sex: Unknown Functional Status Question Answer Note LastModified by Organizat ion Details LastModified Time What is your level of alcohol consumption? Moderate light wine Information not available 07/04/2023 Are you able to walk independently without assistance or assistive devices? YESWOREST Information not available 07/04/2023 Mental Status None recorded. Family History Nothing Reported. Medical History Condition Response Urinary Tract Infections Y Gynecological History Statement/Question Response Abnormal Pap Y Date of Last Pap Smear 07/30/2015 Sexually Active? Y On BCP's at Conception? N Obstetrics History GPAL:G 0 P 0 0 0 0 Immunizations Vaccine Type Date Status Note Provider Nam e and Address Organization Details Recorded Time Influenza, split virus, quadrivalent, PF 05/24/2022 completed Tato Collins DO [address], [place], [address], [facility] 05/27/2022 23:08:57 COVID-19, mRNA, LNP-S, PF, 30 mcg/0.3 mL dose 07/15/2021 completed Lesly vang [facility] 07/19/2021 08:42:12 Past Encounters Encounter ID Performer Location Encounter Start Date Encounter Closed Date Diagnosis/Indication Diagnosis SNOMED-CT Code Diagnosis ICD10 Code Diagnosis IMO Codes Diagnosis Note [id number] Tato Collins, DO Main Office [address] [place] [address] 05/15/2025 09:06:06 05/19/2025 16:58:49 General examination of patient 739435292 Z00.00 159767 Menopausal syndrome 1237 07931 N95.1 18646 Health Concerns Section Related Observation LastModified by Organization Detai ls LastModified Time None Recorded Concern Status LastModified by Organization Details LastModified Time None Recorded Payers Encounter Date Sequence Insurance Name Policy Number Policy Platt Covered Member ID Platt Member ID Guarantor Name 05/15/2025 1 [facility] [place] (MEDICARE REPLACEMENT/A DVANTAGE - PPO) [id number] Rossana Arriola [id number] Rossana Arriola Notes Date Note Type Note Provider Name and Address Organization Details Recorded Time 05/15/2025 text/html ROS as noted in the HPI CC: Update and Physical, Saw doctor week ago, needs surgery for pelvic floor failure. Surgery set for September. HPI: Has not had physical in 2 years. Wants a whole blood panel. Upcoming pelvic floor surgery Menopausal - well managed. Taking hormones. Managing symptoms. Denies flushing or headache Heart Issues - BP: 149/83 during visit. Last visit with urogynocologits reports normal BP.PMH: Menopausal symptomsPSH: Pelvic floor - 2023, Wrist fracture 8798WZ0: Works out 3 times/w, walks daily, lift weights. 7-8 hours/night. 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
--- OUTSIDE RECORDS SUMMARY | 2025-07-29 07:54 | XMS_ITS | Data Portability ---
Author Organization [place] Alana Decker [facility], [employer] Address [address] [place] [address] Assessment Encounter Date Assessment Date Assessment LastModified by Organization Details LastModified Time 07/04/2023 07/04/2023 Patient presente d to office today for their Medicare Annual Wellness Visit. Education was provided on healthy nutrition, including a diet rich in fruits and vegetables, minimizing simple carbohydrates, salt, and saturated fats. Encouraged regular cardiovascular exercise such as walking at least 30 minutes daily, 5 times per week. Emphasized preventive health measures and educated pt on fall prevention and community-based lifestyle interventions to help reduce health risks and promote healthy living. Not available 07/04/2023 15:34:16 Plan of Treatment Reminders Order Date Submit Date Provider Last Modified By Organization Details Last Modified Time Details Appointments None recorded. Lab CBC w/ auto diff 2024 025 MIC [facility], [address] [place], [address], 5 23:07:08 lipid panel, serum 2024 025 MIC [facility], [address] [place], [address], 5 23:07:10 CMP, serum or plasma 2024 025 MIC [facility], [address] [place], [address], 5 23:07:09 estradiol, serum 2024 025 MIC [facility], [address], [place], [address], 5 13:08:18 progesteron e, serum 2024 025 MIC [facility], [address], [place], [address], 13:08:19 testosteron e, free + total, serum 2024 025 MIC [facility], [address], [place], [address], 13:08:18 TSH + free T4, serum 2024 025 MIC [facility], [address], [place], [address], 13:08:17 T3, free, serum or plasma 2024 025 MIC [facility], [address], [place], [address], 13:08:19 TSH + free T4, serum 2024 025 [facility], [address], [place], [address], 19:07:48 T3, free, serum or plasma 2024 025 MIC [facility], [address], [place], [address], 5 19:07:54 estradiol, serum 2024 025 MIC [facility], [address], [place], [address], 5 19:07:51 progesteron e, serum 2024 025 MIC [facility], [address] , [place], [address], 5 19:07:53 dhea-sulfat e, serum 2024 025 [facility], [address], [place], [address], 5 19:07:50 testosteron e, free + total, serum 2024 025 [facility], [address] [place], [address], 5 19:07:50 Referral None recorded. Procedures None recorded. Surgeries None recorded. Imaging thermogram, breast 2024 [facility], [address] [place], [address], 17:33:45 Medication Orders estradiol 2 mg tablet 2024 025 [facility]acy #[id number], [address] [place], [address], 10:35:06 progesteron e micronized 200 mg capsule 2024 025 [facility]acy #[id number], [address] [place], [address], 10:35:06 compounded medication 2024 025 [facility], [address] [place] [address], [address], 10:35:08 [employer]OC[employer]AILER Thyroid 30 mg tablet [email or web address]/Pharmacy #[id number], [address] [place], [address], 17:52:59 Medrol (Jovanny) 4 mg tablets in a dose pack [email or web address] [facility]/Pharmacy #[id number], [address] [place], [address], 09:30:41 azithromyci n 250 mg tablet [email or web address] [facility]acy #[id number], [address] [place], [address], 09:30:33 Patient TargetsNo targets recorded. Patient Instructions Encounter Date Encounter Id Patient Instructions Last Modified By Organization Details Last Modified Time 01/22/2025 [id number] Finish antibioti c until gone. Increase fluid intake and rest. Take an OTC antihistamine (Zyrtec, Claritin, Mel) daily. Sinus/normal saline nasal rinses with distilled water as needed. OTC Nasal spray (i.e., Flonase/Sensimist, Nasacort, etc) as needed. Decongestant as needed - Sudafed daily or if you have high blood pressure you can take Coricidin HBP. Vaporizer/cool mist humidifier at bedside. Tylenol or Ibuprofen as needed. Warm salt water gargles as needed for sore throat. Increase Vitamin C and Zinc 50 mg as needed to boost immune system. Follow up in 3 days if symptoms persist, sooner if they worsen. 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 [email or web address] Not available 01/22/2025 13:14:03 02/13/2025 [id number] *Pt sent home wi th the BHRT booklet and was encouraged to skim through and highlight questions for us to discuss in greater detail at her follow up in 2 weeks* -Discussed the risks, benefits, and expected outcomes of hormone replacement therapy. This includes, but isn't limited to: >> Black box warning for estradiol discussed regarding cardiovascular risks, endometrial, and breast cancer. >> The importance of annual mammogram screening while taking hormones; patient agrees. >> The off label use of prescribed testosterone is being prescribed to treat symptoms of fatigue, lack of motivation, weight gain, low libido. --Pt understands side effects of acne, unwanted hair growth, and swelling. >> The risk of transference with application of testosterone cream; education given regarding no contact for 4 hours after application and to wash hands thoroughly after applying. >> The off label use of prescribed progesterone is being prescribed to treat symptoms of irritability, poor sleep, mental fog, decrease in memory, anxiety and depression. Adequate time allowed to address questions and concerns. The pt verbalizes understanding of risks and agrees with plan of care. She is also encouraged to notify the clinic if/when additional questions or concerns arise [email or web address] Not available 02/13/2025 10:20:59 05/15/2025 [id number] The patient has her mammogram scheduled Colorectal cancer screen up to date [email or web address] Not available 05/15/2025 10:09:13 Reason for Referral None Reported. Results Created Date Observation Date Name Description Value Unit Range Abnormal Flag Note LastModifiedBy Organization Detail LastModifiedTime 01/23/2001/26/2025 TSH+F REE T4 TSH 2.180 uIU/m L 0.450- 4.500 normal Not Available [facility] ([facility]) [address] [place], [address], 01/26/2025 19:07:48 01/23/2001/26/2025 TSH+F REE T4 T4,free(dire ct) 0.89 NG/dL 0.82-1 .77 normal Not Available [facility] ([facility]) [address] [place], [address], 01/26/2025 19:07:48 01/23/20 25 01/25/2025 TESTO STERO NE,FR EE AND TOTAL free testosterone (direct) 0.4 pg/mL 0.0-4. 2 Not Available [facility] ([facility]) [address] [place], [address], 01/26/2025 19:07:49 01/23/20 25 01/26/2025 TESTO STERO NE,FR EE AND TOTAL testosterone 25 NG/dL 3-67 normal Not Available [facility] ([facility]) [address] [place], [address], 01/26/2025 19:07:49 01/23/20 25 01/26/2025 DHEA- SULFA TE DHEA-sulfate 51.6 ug/dL 20.4-1 86.6 normal Not Available [facility] ([facility]) [address] [place], [address], 01/26/2025 19:07:50 01/23/20 25 01/26/2025 ESTRA DIOL estradiol 23.4 pg/mL 0.0-54 .7 normal Adult Femal e Range Folli cular phase 12.5 - 166.0 Ovula tion phase 85.8 - 498.0 Lutea l phase 43.8 - 211.0 Postm enopa usal <6.0 - 54.7 Pregn estela 1st trime ster 215.0 - >4300 .0 Mac ECLIA metho dolog y Not Available [facility] ([facility]) [address], [place], [address], 01/26/2025 19:07:51 01/23/20 25 01/26/2025 PROGE STERO NE progesterone 0.2 NG/mL normal Folli cular phase 0.1 - 0.9 Lutea l phase 1.8 - 23.9 Ovula tion phase 0.1 - 12.0 Pregn ant First trime ster 11.0 - 44.3 Secon d trime ster 25.4 - 83.3 Third trime ster 58.7 - 214.0 Postm enopa usal 0.0 - 0.1 Not Available [facility] ([facility]) [address] [place], [address], 01/26/2025 19:07:53 01/23/20 25 01/26/2025 TRIIO DOTHY FLORY E (T3), FREE triiodothyro nine (T3), free 1.8 pg/mL 2.0-4. 4 below low normal Not Available [facility] ([facility]) [address], [place], [address], 01/26/2025 19:07:54 05/18/2005/18/2025 CBC WITH DIFFE RENTI AL/PL ATELE T WBC 6.9 x10e3 /uL 3.4-10 .8 normal Not Available [facility] ([facility]) [address], [place], [address], 05/18/2025 23:07:08 05/18/20 25 05/18/2025 CBC WITH DIFFE RENTI AL/PL ATELE T RBC 4.06 x10e6 /uL 3.77-5 .28 normal Not Available [facility] ([facility]) [address], [place], [address], 05/18/2025 23:07:08 05/18/20 25 05/18/2025 CBC WITH DIFFE RENTI AL/PL ATELE T hemoglobin 13.3 g/dL 11.1-1 5.9 normal Not Available [facility] ([facility]) [address] [place], [address], 05/18/2025 23:07:08 05/18/20 25 05/18/2025 CBC WITH DIFFE RENTI AL/PL ATELE T hematocrit 38.9 % 34.0-4 6.6 normal Not Available [facility] ([facility]) [address] [place], [address], 05/18/2025 23:07:08 05/18/20 25 05/18/2025 CBC WITH DIFFE RENTI AL/PL ATELE T MCV 96 fL 79-97 normal Not Available [facility] ([facility]) [address] [place], [address], 05/18/2025 23:07:08 05/18/20 25 05/18/2025 CBC WITH DIFFE RENTI AL/PL ATELE T MCH 32.8 pg 26.6-3 3.0 normal Not Available [facility] ([facility]) [address], [place], [address], 05/18/2025 23:07:08 05/18/20 25 05/18/2025 CBC WITH DIFFE RENTI AL/PL ATELE T MCHC 34.2 g/dL 31.5-3 5.7 normal Not Available [facility] ([facility]) [address], [place], [address], 05/18/2025 23:07:08 05/18/20 25 05/18/2025 CBC WITH DIFFE RENTI AL/PL ATELE T RDW 12.5 % 11.7-1 5.4 Not Available [facility] ([facility]) [address], [place], [address], 05/18/2025 23:07:08 05/18/20 25 05/18/2025 CBC WITH DIFFE RENTI AL/PL ATELE T platelets 370 x10e3 /uL 150-45 0 normal Not Available [facility] ([facility]) [address] [place], [address], 05/18/2025 23:07:08 05/18/20 25 05/18/2025 CBC WITH DIFFE RENTI AL/PL ATELE T neutrophils 50 % not estab. normal Not Available [facility] ([facility]) [address] [place], [address], 05/18/2025 23:07:08 05/18/20 25 05/18/2025 CBC WITH DIFFE RENTI AL/PL ATELE T lymphs 40 % not estab. normal Not Available [facility] ([facility]) [address] [place], [address], 05/18/2025 23:07:08 05/18/20 25 05/18/2025 CBC WITH DIFFE RENTI AL/PL ATELE T monocytes 6 % not estab. normal Not Available [facility] ([facility]) [address] [place], [address], 05/18/2025 23:07:08 05/18/20 25 05/18/2025 CBC WITH DIFFE RENTI AL/PL ATELE T eos 3 % not estab. normal Not Available [facility] ([facility]) [address] [place], [address], 05/18/2025 23:07:08 05/18/20 25 05/18/2025 CBC WITH DIFFE RENTI AL/PL ATELE T basos 1 % not estab. normal Not Available [facility] ([facility]) [address] [place], [address], 05/18/2025 23:07:08 05/18/20 25 05/18/2025 CBC WITH DIFFE RENTI AL/PL ATELE T immature cells [employer]AILER Not Available [facility] ([facility]) [address] [place], [address], 05/18/2025 23:07:08 05/18/20 25 05/18/2025 CBC WITH DIFFE RENTI AL/PL ATELE T neutrophils (absolute) 3.4 x10e3 /uL 1.4-7. 0 normal Not Available [facility] ([facility]) [address] [place], [address], 05/18/2025 23:07:08 05/18/20 25 05/18/2025 CBC WITH DIFFE RENTI AL/PL ATELE T lymphs (absolute) 2.8 x10e3 /uL 0.7-3. 1 normal Not Available [facility] ([facility]) [address] [place], [address], 05/18/2025 23:07:08 05/18/20 25 05/18/2025 CBC WITH DIFFE RENTI AL/PL ATELE T monocytes(ab solute) 0.4 x10e3 /uL 0.1-0. 9 normal Not Available [facility] ([facility]) [address] [place], [address], 05/18/2025 23:07:08 05/18/20 25 05/18/2025 CBC WITH DIFFE RENTI AL/PL ATELE T eos (absolute) 0.2 x10e3 /uL 0.0-0. 4 normal Not Available [facility] ([facility]) [address], [place], [address], 05/18/2025 23:07:08 05/18/20 25 05/18/2025 CBC WITH DIFFE RENTI AL/PL ATELE T baso (absolute) 0.1 x10e3 /uL 0.0-0. 2 normal Not Available [facility] ([facility]) [address], [place], [address], 05/18/2025 23:07:08 05/18/20 25 05/18/2025 CBC WITH DIFFE RENTI AL/PL ATELE T immature granulocytes 0 % not estab. Not Available [facility] ([facility]) [address], [place], [address], 05/18/2025 23:07:08 05/18/20 25 05/18/2025 CBC WITH DIFFE RENTI AL/PL ATELE T immature grans (abs) 0.0 x10e3 /uL 0.0-0. 1 Not Available [facility] ([facility]) [address] [place], [address], 05/18/2025 23:07:08 05/18/20 25 05/18/2025 CBC WITH DIFFE RENTI AL/PL ATELE T NRBC [employer] DETAILER Not Available [facility] ([facility]) [address] [place], [address], 05/18/2025 23:07:08 05/18/20 25 05/18/2025 CBC WITH DIFFE RENTI AL/PL ATELE T hematology comments: AUTOC[employer] DETAILER Not Available [facility] ([facility]) [address] [place], [address], 05/18/2025 23:07:08 05/18/20 25 05/18/2025 COMP. METAB OLIC PANEL (14) glucose 115 mg/dL 70-99 above high normal Not Available [facility] ([facility]) [address], [place], [address], 05/18/2025 23:07:09 05/18/20 25 05/18/2025 COMP. METAB OLIC PANEL (14) BUN 13 mg/dL 8-27 normal Not Available [facility] ([facility]) [address], [place], [address], 05/18/2025 23:07:09 05/18/20 25 05/18/2025 COMP. METAB OLIC PANEL (14) creatinine 0.73 mg/dL 0.57-1 .00 normal Not Available [facility] ([facility]) [address], [place], [address], 05/18/2025 23:07:09 05/18/20 25 05/18/2025 COMP. METAB OLIC PANEL (14) eGFR 90 mL/mi n/1.7 3 >59 normal Not Available [facility] ([facility]) [address], [place], [address], 05/18/2025 23:07:09 05/18/20 25 05/18/2025 COMP. METAB OLIC PANEL (14) BUN/creatini ne ratio 18 12-28 normal Not Available [facility] ([facility]) [address], [place], [address], 05/18/2025 23:07:09 05/18/20 25 05/18/2025 COMP. METAB OLIC PANEL (14) sodium 136 mmol/ L 134-14 4 normal Not Available [facility] ([facility]) [address], [place], [address], 05/18/2025 23:07:09 05/18/20 25 05/18/2025 COMP. METAB OLIC PANEL (14) potassium 4.2 mmol/ L 3.5-5. 2 normal Not Available [facility] ([facility]) [address] [place], [address], 05/18/2025 23:07:09 05/18/20 25 05/18/2025 COMP. METAB OLIC PANEL (14) chloride 102 mmol/ L 96-106 normal Not Available [facility] ([facility]) [address] [place], [address], 05/18/2025 23:07:09 05/18/20 25 05/18/2025 COMP. METAB OLIC PANEL (14) carbon dioxide, total 20 mmol/ L 20-29 normal Not Available [facility] ([facility]) [address], [place], [address], 05/18/2025 23:07:09 05/18/20 25 05/18/2025 COMP. METAB OLIC PANEL (14) calcium 9.5 mg/dL 8.7-10 .3 normal Not Available [facility] ([facility]) [address] [place], [address], 05/18/2025 23:07:09 05/18/20 25 05/18/2025 COMP. METAB OLIC PANEL (14) protein, total 6.7 g/dL 6.0-8. 5 normal Not Available [facility] ([facility]) [address] [place], [address], 05/18/2025 23:07:09 05/18/20 25 05/18/2025 COMP. METAB OLIC PANEL (14) albumin 4.2 g/dL 3.9-4. 9 normal Not Available [facility] ([facility]) [address] [place], [address], 05/18/2025 23:07:09 05/18/20 25 05/18/2025 COMP. METAB OLIC PANEL (14) globulin, total 2.5 g/dL 1.5-4. 5 Not Available [facility] ([facility]) [address] [place], [address], 05/18/2025 23:07:09 05/18/20 25 05/18/2025 COMP. METAB OLIC PANEL (14) bilirubin, total 0.4 mg/dL 0.0-1. 2 normal Not Available [facility] ([facility]) [address] [place], [address], 05/18/2025 23:07:09 05/18/20 25 05/18/2025 COMP. METAB OLIC PANEL (14) alkaline phosphatase 60 IU/L 49-135 normal Not Available [facility] ([facility]) [address] [place], [address], 05/18/2025 23:07:09 05/18/20 25 05/18/2025 COMP. METAB OLIC PANEL (14) AST (SGOT) 16 IU/L 0-40 normal Not Available [facility] ([facility]) [address] [place], [address], 05/18/2025 23:07:09 05/18/20 25 05/18/2025 COMP. METAB OLIC PANEL (14) ALT (SGPT) 10 IU/L 0-32 normal Not Available [facility] ([facility]) [address] [place], [address], 05/18/2025 23:07:09 05/18/20 25 05/18/2025 LIPID PANEL cholesterol, total 139 mg/dL 100-19 9 normal Not Available [facility] ([facility]) [address] [place], [address], 05/18/2025 23:07:10 05/18/20 25 05/18/2025 LIPID PANEL triglyceride s 123 mg/dL 0-149 normal Not Available [facility] ([facility]) [address] [place], [address], 05/18/2025 23:07:10 05/18/20 25 05/18/2025 LIPID PANEL HDL cholesterol 58 mg/dL >39 normal Not Available [facility] ([facility]) [address] [place], [address], 05/18/2025 23:07:10 05/18/20 25 05/18/2025 LIPID PANEL VLDL cholesterol luz 22 mg/dL 5-40 Not Available [facility] ([facility]) [address] [place], [address], 05/18/2025 23:07:10 05/18/20 25 05/18/2025 LIPID PANEL LDL chol calc ([facility]) 59 mg/dL 0-99 Not Available [facility] ([facility]) [address] [place], [address], 05/18/2025 23:07:10 05/18/20 25 05/18/2025 LIPID PANEL LDL calc comment: AUTOCAD DETAILER Not Available [facility] ([facility]) [address] [place], [address], 05/18/2025 23:07:10 05/18/20 25 05/18/2025 TSH+F REE T4 TSH 1.510 uIU/m L 0.450- 4.500 normal Not Available [facility] ([facility]) [address] [place], [address], 05/20/2025 13:08:17 05/18/20 25 05/18/2025 TSH+F REE T4 T4,free(dire ct) 1.19 NG/dL 0.82-1 .77 normal Not Available [facility] ([facility]) [address] [place], [address], 05/20/2025 13:08:17 05/18/20 25 05/18/2025 TESTO STERO NE,FR EE AND TOTAL testosterone 741 NG/dL 3-67 above high normal Not Available [facility] ([facility]) [address] [place], [address], 05/20/2025 13:08:18 05/18/20 25 05/20/2025 TESTO STERO NE,FR EE AND TOTAL free testosterone (direct) 8.2 pg/mL 0.0-4. 2 above high normal Not Available [facility] ([facility]) [address] [place], [address], 05/20/2025 13:08:18 05/18/20 25 05/18/2025 ESTRA DIOL estradiol 66.5 pg/mL 0.0-54 .7 above high normal Adult Femal e Range Folli cular phase 12.5 - 166.0 Ovula tion phase 85.8 - 498.0 Lutea l phase 43.8 - 211.0 Postm enopa usal <6.0 - 54.7 Pregn estela 1st trime ster 215.0 - >4300 .0 Mac ECLIA metho dolog y Not Available [facility] ([facility]) [address] [place], [address], 05/20/2025 13:08:18 05/18/20 25 05/19/2025 PROGE STERO NE progesterone 4.6 NG/mL normal Folli cular phase 0.1 - 0.9 Lutea l phase 1.8 - 23.9 Ovula tion phase 0.1 - 12.0 Pregn ant First trime ster 11.0 - 44.3 Secon d trime ster 25.4 - 83.3 Third trime ster 58.7 - 214.0 Postm enopa usal 0.0 - 0.1 Not Available [facility] ([facility]) [address] [place], [address], 05/20/2025 13:08:19 05/18/20 25 05/18/2025 TRIIO DOTHY FLORY E (T3), FREE triiodothyro nine (T3), free 3.8 pg/mL 2.0-4. 4 normal Not Available [facility] ([facility]) [address], [place], [address], 05/20/2025 13:08:19 05/20/2005/20/2025 MAMMO , 3D rende ring No observ ation record ed. [email or web address] [facility] [address], [place], [address], 05/25/2025 13:42:12 05/29/2005/29/2025 MAMMO , scree deb, bilat eral No observ ation record ed. [email or web address] [facility] [address], [place], [address], 06/01/2025 10:43:32 05/29/2005/29/2025 MAMMO , diagn ostic , unila teral No observ ation record ed. [facility] [address], [place], [address], 06/01/2025 10:43:33 Result Notes None recorded. Problems Name Problem SNOMED Code Status Onset Date Resolution Date Notes Provider Name and Address Organization Details Recorded Time Upper respiratory infection 62259783 Active 2023 PABLITO BRO, STORMY [address], [place], [address], [place] [facility] 4 16:45:07 Cough 23147702 Active 2023 PABLITO BRO NP [address], [place], [address], [place] [facility] 4 16:45:26 Fatigue 99038863 Active 2024 Lilibeth Torres, STORMY [address], [place], [address], [place] [facility] 5 10:40:15 Menopausal syndrome 644512731 Active 2024 Lilibeth Torres, STORMY [address], [place], [address], [facility] 5 10:40:16 Notes:Some problems listed i n Document: #[id number] could not be added to this patient's chart. Please review this document and add these problems to the patient's chart manually as needed. Problem Notes None recorded. Procedures Surgical History Date Name Laterality Status Provider Name and Address Organization Details Recorded Time 09/11/19 23 reconstruction of pelvic floor completed Maryann Morejon [facility], [place] 07/04/2023 15:39:54 07/30/19 16 Date of Last Pap Smear completed [facility] 10/04/2016 09:44:59 Imaging Results None recorded. Procedure Notes None recorded. Medical Equipment None Reported. Allergies Allergen ID Allergen Name Allergen Category Reaction Reaction Severity Criticality Documentation Date Start Date Code Code System Note Provider Name and Address Organization Details Recorded Time Bactrim medicatio n nausea severe low 07/04/2023 09408 9 [facility] 3 17:58:49 4258 ragweed pollen environme nt Not available Not available Not available 10/04/2016October [facility] 7 09:22:14 Medications Name Sig Start Date Stop Date Status Note LastModified by Organization Details LastModified Time Testostero ne Cr. (lipoderm) Topi-Click 20mg/gm 1 click nightly to external vaginal area 03/08 completed Called into [facility] 01/03/21 Not Available Not Available Not Available Testostero ne Topi-Click Vanishing Cream 20mg/gm APPLY 1 CLICK [...] Not Available Not Available No t Available [place]-3 3,000 mg daily active Not Available Not [...] completed Not Available Not Available Not Available [employer] Thyroid 30 mg tablet TAKE 1 TABLET BY MOUTH ONCE EVERY MORNING FOR 30 DAYS 05/22 completed Not Available Not Available Not Available [employer] Thyroid 60 mg tablet Take 1 tablet [...] Available Vitals Date Recorded Body height Body mass index (BMI) Body weight Body temperature Heart rate Oxygen saturation Systolic And Diastolic Provider Name and Address Organization Details Last Updated DateTime 4 157.48 cm 22.3 kg/m2 59348.2 7 g 97.9 [degF] 75 /min 94 % 151/83 mm[Hg] Elisabeth Loera [facility], [place] 4 16:33:14 Date Recorded Body height Heart rate Body temperature Body weight Body mass index (BMI) Systolic And Diastolic Provider Name and Address Organization Details Last Updated DateTime 5 157.48 cm 71 /min 98 [degF] 36950.1 4 g 22.5 kg/m2 150/81 mm[Hg] Eusebio Murray [facility] [place] 5 12:41:49 Date Recorded Body height Body mass index (BMI) Body weight Body temperature Heart rate Oxygen saturation Systolic And Diastolic Provider Name and Address Organization Details Last Updated DateTime 5 157.48 cm 22.7 kg/m2 18145.4 5 g 97.3 [degF] 86 /min 99 % 112/70 mm[Hg] Perri Valentina [facility] [place] 5 09:43:07 Date Recorded Body height Body temperature Heart rate Body mass index (BMI) Body weight Oxygen saturation Systolic And Diastolic Provider Name and Address Organization Details Last Updated DateTime 5 157.48 cm 98.2 [degF] 73 /min 22.3 kg/m2 65636.2 7 g 98 % 149/83 mm[Hg] Rebeca Vasquez [facility] [place] 5 09:30:13 Date Recorded Body height Heart rate Body temperature Body mass index (BMI) Body weight Oxygen saturation Systolic And Diastolic Provider Name and Address Organization Details Last Updated DateTime 3 157.48 cm 89 /min 98.6 [degF] 22.3 kg/m2 15547.2 7 g 96 % 150/85 mm[Hg] Mrayann Morejon [facility], [place], operated [facility] 3 17:57:57 Social History Question Answer Notes LastModified by Organizat ion Details LastModified Time Tobacco Smoking Status Never Smoker Maryann vang [facility], [place], [facility] 07/04/2023 15:39:11 Do You Have An Advance [...] 05/24/2022 completed Tato Collins DO [address], [place], [address], [facility] 05/27/2022 23:08:57 COVID-19, mRNA, LNP-S, PF, 30 mcg/0.3 mL dose 07/15/2021 completed Lesly vang [facility], [place], [facility] 07/19/2021 08:42:12 Past Encounters Encounter ID Performer Location Encounter Start Date Encounter Closed Date Diagnosis/Indication Diagnosis SNOMED-CT Code Diagnosis ICD10 Code Diagnosis IMO Codes Diagnosis Note [id number] Jessi Mayen NP Main Office [address] [facility] [address] [place] [address] 10/04/2016 09:08:52 10/04/2016 10:07:08 Acute bronchitis 18831500 J20.9 [id number] Tong Love MD Main Office [address] [place] [address] 11/27/2018 10:36:23 11/28/2018 08:52:41 Acute bronchitis 39242375 J20.9 [id number] Mejia Holly MD Main Office [address] [place] [address] 07/28/2020 08:44:55 08/02/2020 14:49:23 Adult health examination 349815125 Z00.00 Fatigue 32196312 R53.83 end of day Menopause present 157652 006 N95.1 Abdominal bloating 56422 9008 R14.0 Heartburn 78611091 R12 [id number] Mejia Holly MD Main Office [address] [place] [address] 07/28/2020 08:55:03 07/29/2020 03:48:41 [id number] Mejia Holly MD Main Office [address] [place] [address] 08/19/2020 14:55:18 08/27/2020 11:31:32 Menopause present 992817213 N95.1 Screening mammography 24 360740 Z12.31 Screening for cardiovascular system disease 705754565 Z13.6 Abdominal bloating 96569 9008 R14.0 Fatigue 00743218 R53.83 end of day [id number] Mejia Holly MD Main Office [address] [place] [address] 09/30/2020 09:57:21 09/30/2020 12:31:43 Abdominal bloating 735879297 R14.0 Fatigue 27299030 R53.83 Menopause present 299567 006 N95.1 [id number] Mejia Holly MD Main Office [address] [place] [address] 11/04/2020 09:13:35 11/04/2020 16:56:34 Menopause present 085916006 N95.1 Heartburn 01351125 R12 resolved Acute sinusitis 90535831 J01.90 [id number] Mejia Holly MD Main Office [address] [place] [address] 01/24/2021 15:00:19 01/25/2021 14:37:28 Fatigue 55011438 R53.83 Menopause present 738132 006 N95.1 Abdominal bloating 66872 9008 R14.0 Increase in body fat 248 783111 E66.9 [id number] Mejia Holly MD Main Office [address] [place] [address] 02/25/2021 08:51:02 03/01/2021 15:25:42 Abdominal bloating 133945981 R14.0 improved Fatigue 89129170 R53.83 Increase in body fat 248 288204 E66.9 Menopause present 755314 006 N95.1 [id number] Mejia Holly MD Main Office [address] [place] [address] 03/21/2021 14:51:39 03/21/2021 15:38:30 Solar lentigo 12491377 L81.4 Menopause present 172771 006 N95.1 Fatigue 35384319 R53.83 Abdominal bloating 22298 9008 R14.0 improved [id number] Mejia Holly MD Main Office [address] [place] [address] 05/17/2021 11:24:31 05/24/2021 03:47:57 [id number] LEONEL DOMINGUEZ Main Office [address] [place] [address] 05/25/2021 08:16:39 05/25/2021 08:56:27 Upper respiratory infection 57997505 J06.9 Continue to treat current symptoms with over the counter antipyreti cs for fevers of 100.4 degrees Fahrenheit or higher, antitussiv es for cough, and analgesics for generalize d body aches as indicated and necessary. no evidence of bacterial infection- encouraged to hold off on abx at this timePt advised to increase fluid intake to prevent dehydratio n.Contact health care provider or seek immediate medical advice if: do not improve as expected, symptoms worsen, have new or worsening trouble breathing. Nausea 117333218 R11.0 advance diet as toleratedz ofran as needed for nausea [id number] Mejia Holly MD Main Office [address] [place] [address] 06/13/2021 09:15:28 06/13/2021 09:59:12 Menopause present 097051117 N95.1 Fatigue 48926926 R53.83 resolved [id number] LEONEL DOMINGUEZ Main Office [address] [place] [address] 10/20/2021 15:10:17 10/20/2021 16:51:12 Acute sinusitis 67004601 J01.90 - Discussed findings with patient in relation to symptoms and duration. - Instructed to monitor temperatur e and treat fevers of 100.4 degrees Fahrenheit or higher with OTC antipyreti c preparatio ns. - Instructed on medication administra tion, duration, and anticipate d course.- Patient questions were answered, patient verbalized understand ing and compliance with plan of care. Acute laryngitis 3880323 J04.0 She was advised to participat e in vocal cord resting as much as possible and to drink soothing/w arm fluids that may alleviate any pain associated with laryngitis . Dysfunctio n of bilateral eustachian tubes 1467094886 991354 H69.93 Intranasal corticoste roids 2 sprays each nostril daily Second-gen eration antihistam ine Claritin or Zyrtec also help with fluid accumulati on behind bilateral TM [id number] Tato Collins DO Main Office [address] [employer] [address] 03/08/2022 11:07:50 03/08/2022 12:43:26 Adult health examination 374955827 Z00.00 Screening mammography 24 076334 Z12.31 Menopausal syndrome 1237 23588 N95.9 [id number] Tato Collins DO Main Office [address] [facility] [address] 05/24/2022 14:57:18 05/24/2022 15:18:06 Active or passive immunization 758319666 Z23 [id number] Mejia Holly MD Main Office [address] [employer] [address] 06/05/2022 15:16:00 06/20/2022 13:35:37 Acute bacterial sinusitis 01211787 J01.90 -Continue treating with sudafed and flonase-Re commended for her to add nasal saline spray and mucinex per package directions .-Hydrate well and rest-Care instructio ns provided and discussed with patient. Instructed her to call if symptoms do not improve or worsen. [id number] Tato Collins DO Main Office [address] [place] [address] 06/28/2022 14:03:51 06/28/2022 14:39:42 Acute frontal sinusitis 87526390 J01.10 -Continue treating with sudafed and flonase-Re commended for her to add nasal saline spray and mucinex per package directions .-Hydrate well and rest-Care instructio ns provided and discussed with patient. Instructed her to call if symptoms do not improve or worsen. call if fever, worsening DC, or vision changes [id number] Tato Collins, DO Main Office [address] [place], [employer] [address] 05/30/2023 08:44:22 06/04/2023 16:34:40 Adult health examination 736062514 Z00.00 Menopausal syndrome 1237 44652 N95.9 Viral uppe r respiratory tract infection 282818346 J06.9 Screening mammography 24 736631 Z12.31 [id number] Tato Collins, DO Main Office [address] [place] [address] 07/04/2023 15:19:53 07/05/2023 09:42:20 Screening for osteoporosis 460856884 Z13.820 Due, last done 08/23/20 to [facility] please Screening mammography 24 571100 Z12.31 Due-last done 03/30/22 Screening for malignant neoplasm of colon 608441410 Z12.11 Last done 03/14/22, normal, rec 10 yr screening Adult heal th examination 962136514 Z00.00 Recommenda tions: screening mammogram and bone density, possible shingles vax [id number] Otoniel Collins, DO Main Office [address] [place], [employer] [address] 07/31/2023 16:14:50 07/31/2023 17:00:20 Upper respiratory infection 87100044 J06.9 Continue to treat current symptoms with over the counter antipyreti cs for fevers of 100.4 degrees Fahrenheit or higher, antitussiv es for cough, and analgesics for generalize d body aches as indicated and necessary. No antibiotic s will help in this disease, as it is caused by a virus. Pt advised to increase fluid intake to prevent dehydratio n. Encouraged to get plenty of rest and likely course of disease is 7-10 days, with cough lasting up to 4-6 weeks. Contact health care provider or seek immediate medical advice if: do not improve as expected, symptoms worsen, have new or worsening trouble breathing. Cough 62964998 R05.9 Promethazi ne 6.25mg-cod eine 10mg to AT for review and prescripti on.Drink lots of water and other fluids. This helps thin the mucus and soothes a dry or sore throat. Honey or lemon juice in hot water or tea may ease a dry cough. Take cough medicine as directed by your doctor. Prop up your head on pillows to help you breathe and ease a dry cough. Try cough drops or hard candy to soothe a dry or sore throat. [id number] Tato Collins DO Main Office [address] [place] [employer] [address] 01/22/2025 12:10:49 01/22/2025 17:01:43 Acute maxillary sinusitis 18281335 J01.00 60169558 Acute cough 6541130870 97764612 R05.5 9132583120 Menopause present 588690 006 N95.1 Hormone Therapy Consultati onAssessme nt: Patient expressed interest in hormone therapy. A consultati on for hormone replacemen t therapy (HRT) is nelida carmonaPlan:- Order labs- Schedule appointmen t with Carlene Merlos in 2 weeks for HRT consult Fatigue 01856398 R53.83 0533254 [id number] Mejia Holly MD Main Office [address] [place] [address] 02/13/2025 09:23:30 02/13/2025 10:43:13 Screening for malignant neoplasm of breast 384202902 Z12.39 3213678231 Discussed standard guidelines ; pt to update 2021 screening Fatigue 43933723 R53.83 0607420 Discussed lab results and supporting recommenda tions. The pt has verbalized understand ing about off-label use of [employer] thyroid for symptom relief and the benefits of optimizing thyroid function by targeting the serum T3 level while maintainin g a normal TSH. Becca also acknowledg ed understand ing regarding the risks and benefits of off-label thyroid enhancemen t and would like to proceed with a plan. --STARTNP thyroid 30mg daily --Pt educated on proper administra tion of this medication , as well as hyperthyro id symptoms to monitor for, such as cardiac palpitatio ns, increased anxiety, diarrhea and/or jittery tremors but has been encouraged to notify the clinic for new onset. Pt instructed to update labs in 90 days. Otherwise, she is encouraged to notify the clinic with questions and/or concerns in the meantime. Menopausal syndrome 1237 98762 N95.1 [id number] ADJUSTEDHR T regimen as follows:-- estradiol 2mg daily--INC REASEproge sterone to 400mg nightly--R ESTARTtest osterone cream 2%, one click daily -Risks of HRT discussed again with patient; Becca verbalizes understand ing and agrees to continue with therapy.Up dated HRT consent signed today. Becca is instructed to repeat labs in 90 days with a 6 month follow up. Otherwise, she is encouraged to notify the clinic with questions in the meantime. [id number] Tato Collins DO Main Office [address] [facility] [address] [place] [address] 05/15/2025 09:06:06 05/19/2025 16:58:49 General examination of patient 341117664 Z00.00 [id number] Menopausal syndrome 1237 60764 N95.1 18193 Health Concerns Section Related Observation LastModified by Organization Detai ls LastModified Time None Recorded Concern Status LastModified by Organization Details LastModified Time None Recorded Advance Directives Directive Y: Payers Insurance Date Sequence Insurance Name Policy Number Policy Platt Covered Member ID Platt Member ID Guarantor Name 08/18/2020 1 [facility] [id number] Tamir Arriola [id number] Rossana Arriola 10/17/2021 1 [facility] [id number] Tamir Arriola [id number] Rossana Becca Arriola 01/22/2025 1 [employer] [facility] [employer] [employer] [facility] [id number] Rossana Arriola [id number] Rossana Arriola 05/22/2025 1 [facility] [place] DV[place] - [place]PO) [id number] Rossana Arriola [id number] Rossana Arriola 01/22/2025 1 [place] Rossana Arriola [id number] Rossana Arriola Notes Date Note Type Note Provider Name and Address Organization Details Recorded Time 07/04/2023 text/html Medicare Annual Wellness VisitReported by PatientSocial/Behavio ral HistoryFor fracture risk, patient reportshistory of fractures. For physical activity, patient reportsexercises on a regular basis(pt reports going to gym and weight training daily). For diet and nutrition, (pt reports a regular diet, eating 3 meals daily, including daily vegs).Mental Status:For depression risk, patient reportssleep disturbances or insomniabut reportsno loss of interest in activitiesandno history of depression(pt reports she takes melatonin or with allergies she takes benadryl at bedtime). For orientation, patient reportsno disorientation to time,no disorientation to date, andno disorientation to place. For concentration and memory, patient reportsno decreased concentrating ability,no memory lapses or loss, anddoes not forget words. For speech/motor difficulties, patient reportsno speech difficulties,no difficulty expressing formulated concepts, andno difficulty writing/copying.Funct ional AbilityFor activities of daily living, patient reportsunable to contol urination and bowelsbut reportsable to bathe with limited or no assistance,able to dress with limited or no assistance,able to feed self with limited or no assistance,able to get out of chair or bed with limited or no assistance,able to groom with limited or no assistance, andable to toilet with limited or no assistance(pt reports some issues with incointinence of bladder). For hearing, patient reportsno loss of hearing. For instrumental activities of daily living, patient reportsable to do house work with limited or no assistance,able to grocery shop with limited or no assistance,able to manage medications with limited or no assistance,able to manage money with limited or no assistance,able to prepare meals with limited or no assistance, andable to use the phone with limited or no assistance. For falls risk assessment, patient reportsno frequent falls while walking,no fall in the past year,no fall since last visit, andno dizziness/vertigo. For home safety, patient reportsno unsafe sandeep hazzards,no unsafe stairs, andno unsafe gas appliances. For vision, (pt reports wearing glasses all the time, no procedures, exams prn). Tato Collins, DO [address], [place], [address], [facility] 07/08/2023 15:00:38 07/31/2023 text/html ROS as noted in the HPI Becca is a 67 year old female who presents to clinic with complaints of bronchitis congestion in chest. Patient reports symptoms started approximately a couple weeks ago.Patient reports constitutional symptoms include: body aches, malaise, increased fatigue, decreased appetite. Patient denies fevers. Patient reports left otalgia with pressure and fullness, pharyngitis accompanied by odynophagia, nasal congestion with drainage. Patient denies sinus pain and pressure. Cough is present, patient reports cough as: productive but she doesn't spit it out, she will swallow it.Patient is not a current smoker. She denies difficulty breathing, shortness of breath. Patient reports wheezing during her coughing fits. Patient rates pain in office 2-10/06, pain is: achy. Patient has not had any changes to bowel appearance or habits. There is no nausea or vomiting to report. There is no reports of oliguria. OTC medications tried include: I've taken everything they sell and no relief . Patient reports she used a cough liquid awhile ago that is the only thing that helps her cough. PABLITO BRO, STORMY [address], [place], [address], [facility] 07/31/2023 16:54:11 01/22/2025 text/html ROS as noted in the HPI Becca presents with multiple symptoms that started on Sunday, including chest congestion, sore throat, ear ringing, runny nose, and sinus pressure, chest congestion, and cough. She reports her was seen in our office and treated with Doxycycline. She recently returned from [place] where she spent time with her grandchildren who all had runny noses. Becca reports an allergy to Bactrim but states she has no other antibiotic allergies. She reports she is over due for hormone labs and follow up and would like to see someone about getting restarted on treatment. ANETTE EARL, BANKRUPTCY MANAGER [address], [place], [address], [facility] 01/22/2025 13:14:21 02/13/2025 text/html Franko is an established 69 yo female who presents to the clinic to transfer her hormone therapy. Her only complaints are that she ran out of supply prior to labs and has been struggling with sleeplessness, weight gain and hair thinning E23.4P0.7TA45eV0.4D51 .6 Menopausal syndrome:--estradiol 2mg daily--progesterone 400mg nightly--testosterone cream 2%, one click daily Fatigue/hair thinning:--[employer]AILER thyroid 30mg daily (started January 2025) LMP:radic al hysterectomy 2022Mammogram:2021, negative(DUE, pt interested in thermography)Colonosc opy:2021, negative 10yr F/U recommended (DUE 2031)DEXA:2020, +osteopenia (DUE) Nopersonal or family history of blood clots or clotting disorders.Nopersonal history of stroke, heart attack, or cancer.Nofamily history of breast cancer. Tobacco use: noneEtoh use: nightly wineIllicit drug use: none Lilibeth Torres, [employer]OCAD DETAILER [address], [place], [address], [facility] 02/13/2025 10:40:38 05/15/2025 text/html ROS as noted in the [...] symptomsPSH: Pelvic floor - 2023, Wrist fracture 8729PE6: Works out 3 times/w, walks daily, lift weights. 7-8 hours/night. 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
[2025-07-29 08:07] LABS: Hematocrit 39.7 % (36-47); Hemoglobin 13.20 g/dL (11.27-16.99); Mean Corpuscular HGB Conc 33.2 g/dL (30-55); Mean Corpuscular Hemoglobin 31.4 pg (27-33); Mean Corpuscular Volume 94.3 fl (85-98); Nucleated Red Blood Cells % 0 %; Platelet Count 335 10^3/cmm (157-399); Red Blood Count 4.21 10^6/uL (3.85-5.65); White Blood Count 8.74 10^3/uL (3.29-11.43)
[2025-07-29] MEDS: iohexol 350 mg/mL 500 mL Btl (per mL) IV (08:11)
--- NOTE | 2025-07-29 08:11 | W.ED.NEUROSD ---
HPI - Neuro Symptoms/Deficit General: Chief Complaint: Neuro Symptoms/Deficit Stated Complaint: pos stroke Time Seen by Provider: 07/29/25 07:43 Source: family Mode of arrival: ambulatory Limitations: no limitations History of Present Illness: 69-year-old female who presents here with confusion some difficulty finding words and left-sided facial numbness. Per family patient woke up with the symptoms last known normal was 1999 last night. Patient here able to tell me her name and answer some questions but does get confused. She has no slurred speech is able to ambulate no focal weaknesses she denies any headache or fever Related Data Home Medications ?Medication ?Instructions ?Recorded ?Confirmed cholecalciferol (vitamin D3) 50 50 mcg PO DAILY 07/29/25 07/29/25 mcg (2,000 unit) tablet (Vitamin D3) estradiol 1 mg tablet See Rx Instructions .Route .COMPLEX 07/29/25 07/29/25 estradiol 2 mg tablet See Rx Instructions .Route .COMPLEX 07/29/25 07/29/25 multivitamin with minerals-folic 0.4 tab PO DAILY 07/29/25 07/29/25 acid 0.4 mg tablet progesterone micronized 200 mg 200 mg PO BEDTIME 07/29/25 07/29/25 capsule thyroid (pork) 60 mg tablet (LABORATORY ADMINISTRATIVE DIRECTOR 60 mg PO QAM 07/29/25 07/29/25 Thyroid) Previous Rx's ?Medication ?Instructions ?Recorded aspirin 81 mg capsule 81 mg PO DAILY #30 caps 07/29/25 atorvastatin 80 mg tablet (Lipitor) 80 mg PO DAILY #30 tabs 07/29/25 Allergies Allergy/AdvReac Type Severity Reaction Status Date / Time No Known Allergies Allergy Verified 07/29/25 08:06 NIH stroke score NIHSS: Level Of Consciousness - 1a: 0 Level Of Consciousness Questions - 1b: Both Correct Level Of Consciousness Commands - 1c: Both Correct Best Gaze - 2: Normal Visual Guerrero - 3: No Visual Loss Facial Palsy - 4: Normal Motor Arm Right - 5: No Drift Motor Arm Left - 5: No Drift Motor Leg Right - 6: No Drift Motor Leg Left - 6: No Drift Limb Ataxia - 7: Absent Sensory - 8: Normal Best Language - 9: No Aphasia Dysarthia - 10: Normal Extinction And Inattention - 11: 0 Score: Total Score: 0 Physical Exam Const: COMMON NORMALS: no acute distress, healthy appearing and alert; negative for patient oriented x3 ORIENTATION/CONSCIOUSNESS: Yes oriented to person; not oriented to place and not oriented to time HENMT: COMMON NORMALS: normocephalic and atraumatic HEAD & SCALP: normocephalic and atraumatic Eye: COMMON NORMALS: Equal, round and reactive pupils present and EOMs intact bilaterally PUPIL: Yes Equal, round and reactive pupils present Neck/C-Spine: COMMON NORMALS: full ROM and supple Chest: COMMONS NORMALS: normal inspection of the chest and normal palpation of entire chest wall Resp: COMMON NORMALS: normal respiratory effort, No retractions, No use of accessory muscles and clear to auscultation bilaterally AUSCULTATION: clear to auscultation bilaterally Cardio: COMMON NORMALS: regular rate, regular rhythm and No murmurs present (Cardio) RATE: regular rate RHYTHM: regular rhythm GI: COMMON NORMALS: Normal to inspection, nondistended, normoactive bowel sounds present, Soft to palpation, non-tender and no masses PALPATION: Yes Soft to palpation Extremity: COMMON NORMALS: normal to inspection and full ROM Neuro: COMMON NORMALS: moves all extremities and no focal motor deficits; negative for patient oriented x3 SENSORIUM/ORIENTATION: Yes alert, Yes oriented to person, No oriented to place and No oriented to time CRANIAL NERVES: Yes CN normal except as noted SPEECH: speech normal GAIT: Yes Normal gait present MOTOR EXAM: 5/5 motor strength present throughout Psych: COMMON NORMALS: mental status grossly normal, Normal thought process present and cooperative THOUGHT PROCESS: Normal thought process present Skin: COMMON NORMALS: no rashes or lesions noted and no wounds GENERAL SKIN EXAM: no rashes or lesions noted Course Vital Signs: Vital signs: Vital Signs Temperature 97.2 F L 07/29/25 07:46 Pulse Rate 76 07/29/25 08:36 Respiratory Rate 20 H 07/29/25 08:36 Blood Pressure 146/101 07/29/25 08:36 Pulse Oximetry 97 07/29/25 08:36 Oxygen Delivery Me thod Room Air 07/29/25 08:36 MDM - Neuro Symptoms/Deficit Medical Decision Making 69-year-old female who presents here with waking up with confusion when she first arrived here she was confused she is now awake alert answering all my questions appropriately. She had had no focal deficits and NIH is 0 when she arrived. Differential includes intracranial hemorrhage, infection, dehydration, stroke. Head CT and CTA here showed no abnormalities lab work showed no significant abnormalities chest x-ray as interpreted by me showed no signs of pneumonia. I went in and spoke to patient and her and recommended admission due to her confusion likely an MRI to rule out a possible stroke. Patient that time states that she does not [place] and did not want to stay and want to be discharged. Upon discharge she did have more questions and I went back and spoke to her again I did inform her of her findings of her labs head CT and CTA were negative I again recommended admission and she stated she wanted to talk to her son. I went back in the room after she had spoke to her son and she again stated that she just wants to go home and will go to [place] and follow-up with her PCP. Did inform her again that was my recommendation to be admitted here but we will discharge her at this time. She is return if worsening she understands agrees to plan EKG interpreted by me at 0844 normal sinus rhythm heart rate [address] elevation QRS 93 QTc 411 Medical Records I reviewed the patient's medical records. Lab Data I reviewed the patient's lab results. 07/29/25 07:59 07/29/25 07:59 Radiology Impressions Chest X-Ray 07/29/25 07:50 IMPRESSION: No acute findings. Head/Neck CTA 07/29/25 07:50 IMPRESSION: 1. No significant cervical ICA stenosis. 2. No flow-limiting intracranial stenosis. 3. LEFT dominant vertebral artery. Both vertebral arteries are patent. Notified Marleny Lemus MD at 07/29/2025 8:[address] 07/29/25 07:51 IMPRESSION: 1. No acute intracranial hemorrhage or edema. 2. Mild cerebral and cerebellar atrophy. 3. No prior infarct. Notified Marleny Lemus MD at 07/29/2025 8:05 AM. Laboratory Results WBC 8.74 10^3/uL (3.29-11.43) 07/29/25 07:59 RBC 4.21 10^6/uL (3.85-5.65) 07/29/25 07:59 Hgb 13.20 g/dL (11.27-16.99) 07/29/25 07:59 Hct 39.7 % (36-47) 07/29/25 07:59 MCV 94.3 fl (85-98) 07/29/25 07:59 MCH 31.4 pg (27-33) 07/29/25 07:59 MCHC 33.2 g/dL (30-55) 07/29/25 07:59 RDW 13.1 % (12.1-15.1) 07/29/25 07:59 Plt Count 335 10^3/cmm (157-399) 07/29/25 07:59 MPV 10.2 fL (7.4-10.4) 07/29/25 07:59 Neut % (Auto) 59.4 % 07/29/25 07:59 Lymph % (Auto) 31.9 % 07/29/25 07:59 [place] % (Auto) 5.1 % 07/29/25 07:59 Eos % (Auto) 2.7 % 07/29/25 07:59 Baso % (Auto) 0.7 % 07/29/25 07:59 Neut # (Auto) 5.18 10^3/uL (1.8-7.7) 07/29/25 07:59 Lymph # (Auto) 2.8 10^3/uL (0.8-4.8) 07/29/25 07:59 [place] # (Auto) 0.5 10^3/uL (0.2-0.9) 07/29/25 07:59 Eos # (Auto) 0.2 10^3/uL (0.0-0.8) 07/29/25 07:59 Baso # (Auto) 0.1 10^3/uL (0.0-0.1) 07/29/25 07:59 Nucleated RBC % (auto) 0 % 07/29/25 07:59 Nucleated RBCs # 0.0 /100WBC 07/29/25 07:59 PT 12.70 SECONDS (12.1-14.9) 07/29/25 07:59 INR 0.89 (0.8-1.2) 07/29/25 07:59 APTT 25.8 SECONDS (23.9-36.7) 07/29/25 07:59 Sodium 137 mmol/L (136-145) 07/29/25 07:59 Potassium 4.0 mmol/L (3.5-5.1) 07/29/25 07:59 Chloride 102 mmol/L (98-107) 07/29/25 07:59 Carbon Dioxide 22 mmol/L (22-29) 07/29/25 07:59 Anion Gap 16.0 (5-19) 07/29/25 07:59 BUN 12 mg/dL (8-23) 07/29/25 07:59 Creatinine 0.7 mg/dL (0.5-0.9) 07/29/25 07:59 GFR Calculation 83.5 mL/min (90-130) L 07/29/25 07:59 Glucose 117 mg/dL (65-115) H 07/29/25 07:59 POC Glucose 111 mg/dL (70-110) H 07/29/25 07:51 Calculated Osmolality 281 mOsm/kg (285-295) L 07/29/25 07:59 Calcium 9.3 mg/dL (8.5-10.5) 07/29/25 07:59 Total Bilirubin 0.2 mg/dL (0.15-1.2) 07/29/25 07:59 AST 18 U/L (0-32) 07/29/25 07:59 ALT 10 U/L (0-33) 07/29/25 07:59 Alkaline Phosphatase 53 U/L (35-105) 07/29/25 07:59 Total Protein 6.7 g/dL (6.6-8.7) 07/29/25 07:59 Albumin 4.2 g/dL (3.5-5.2) 07/29/25 07:59 Globulin 2.5 g/dL (1.3-4.6) 07/29/25 07:59 Urine Color Yellow (Yellow) 07/29/25 08:15 Urine Appearance Clear (CLEAR) 07/29/25 08:15 Urine pH 5.5 (5-7) 07/29/25 08:15 Ur Specific [place] 1.022 (1.005-1.030) 07/29/25 08:15 Urine Protein Negative (Negative) 07/29/25 08:15 Urine Glucose (UA) Negative (Normal) 07/29/25 08:15 Urine Ketones Negative (Negative) 07/29/25 08:15 Urine Blood Negative (Negative) 07/29/25 08:15 Urine Nitrate Negative (Negative) 07/29/25 08:15 Urine Bilirubin Negative (Negative) 07/29/25 08:15 Urine Urobilinogen 0.2 mg/dL (Negative) 07/29/25 08:15 Ur Leukocyte Esterase Negative (Negative) 07/29/25 08:15 Urine RBC 0-2 /hpf (0-2) 07/29/25 08:15 Urine WBC 0-5 /hpf (0-5) 07/29/25 08:15 Ur Squamous Epith Cells 0-5 /hpf (0-5) 07/29/25 08:15 Amorphous Sediment Not Reportable 07/29/25 08:15 Urine Bacteria None seen /hpf (NONE) 07/29/25 08:15 Hyaline Casts 0-4 /lpf H 07/29/25 08:15 Urine Opiates Screen Negative ng/mL (Negative) 07/29/25 08:15 Ur Barbiturates Screen Negative ng/mL (Negative) 07/29/25 08:15 Ur Phencyclidine Scrn Negative ng/mL (Negative) 07/29/25 08:15 Ur Amphetamines Screen Negative ng/mL (Negative) 07/29/25 08:15 U Benzodiazepines Scrn Negative ng/mL (Negative) 07/29/25 08:15 Urine Cocaine Screen Negative ng/mL (Negative) 07/29/25 08:15 U Marijuana (THC) Screen Negative ng/mL (Negative) 07/29/25 08:15 All radiology interpretation(s) finalized by discharge Discharge Plan Discharge Patient Disposition: Home Clinical Impression: Confusion Condition: Stable Prescriptions: New aspirin 81 mg capsule 81 mg PO DAILY Qty: 30 0RF atorvastatin [Lipitor] 80 mg tablet 80 mg PO DAILY Qty: 30 0RF No Action estradiol 1 mg tablet See Rx Instructions .ROUTE .COMPLEX Rx Instructions: TAKE 1 TABLET BY MOUTH ONCE EVERY DAY WITH THE 2 MG TABLET FOR A TOTAL OF 3 MG progesterone micronized 200 mg capsule 200 mg PO BEDTIME estradiol 2 mg tablet See Rx Instructions .ROUTE .COMPLEX Rx Instructions: TAKE 1 TABLET BY MOUTH ONCE EVERY DAY WITH THE 1MG TABLET FOR A TOTAL OF 3 MG multivit with min-folic acid [Daily Multiple For Women 50+] 0.4 mg Tablet 0.4 tab PO DAILY cholecalciferol (vitamin D3) [Vitamin D3] 50 mcg (2,000 unit) Tablet 50 mcg PO DAILY thyroid (pork) [LABORATORY ADMINISTRATIVE DIRECTOR Thyroid] 60 mg tablet 60 mg PO QAM Discharge Orders: Discharge ED (Routine); Ordered 07/29/25 Ordered By: Marleny Lemus Discharge Diet: Advance as tolerated Discharge Activity: Resume usual activity Patient Instructions: Confusion Print Language: Citizen Of [place] Coding Level of Care Code ED Battery Hand for Evelina Lamb
[2025-07-29 08:23] LABS: INR 0.89 (0.8-1.2); Prothrombin Time 12.70 SECONDS (12.1-14.9)
[2025-07-29 08:25] LABS: Partial Thromboplastin Time 25.8 SECONDS (23.9-36.7)
[2025-07-29 08:27] LABS: Alanine Aminotransferase 10 U/L (0-33); Albumin Level 4.2 g/dL (3.5-5.2); Alkaline Phosphatase 53 U/L (35-105); Aspartate Amino Transferase 18 U/L (0-32); Chloride 102 mmol/L (98-107); Globulin 2.5 g/dL (1.3-4.6); Sodium 137 mmol/L (136-145); Total Protein 6.7 g/dL (6.6-8.7)
[2025-07-29 08:32] LABS: Glucose Urine UA Negative (Normal); Nitrate Urine Negative (Negative); Specific Gravity, Urine 1.022 (1.005-1.030)
[2025-07-29 08:36] VITALS: BP 146/101; PULSE 76; RESP 20; O2SAT 97
[2025-07-29 08:37] LABS: Add Urine Microscopic? YES
[2025-07-29 08:38] LABS: Blood Urea Nitrogen 12 mg/dL (8-23); Calcium 9.3 mg/dL (8.5-10.5); Carbon Dioxide 22 mmol/L (22-29); Glucose 117 mg/dL (65-115); Osmolality Calculated 281 mOsm/kg (285-295)
[2025-07-29 08:39] LABS: Anion Gap 16.0 (5-19); Potassium 4.0 mmol/L (3.5-5.1)
[2025-07-29 08:39] LABS: PCP Screen Urine Negative (Negative)
--- NOTE | 2025-07-29 08:44 | ECG_ITS ---
[facility] Test Date: 2025-07-29 Pat Name: Rossana Arriola Department: Room: Gender: Female Assistant Teacher: : 1955 Requested By: Marleny Lemus Order Number: [id number] Lizette MD: Carlos Avelar M.D. Measurements Intervals [place] Rate: 75 P: 21 CT: 137 QRS: 41 QRSD: 93 T: 35 QT: 382 QTc: 428 Interpretive Statements SINUS RHYTHM No previous ECG available for comparison Electronically Signed On 07-30-2025 15:46:30 [employer] SERV[employer]IATE by Carlos Avelar M.D. [id number]
[2025-07-29 09:48] VITALS: BP 155/80; PULSE 74; RESP 17; O2SAT 98
== END 2025-07-29 09:49 | disposition home or self-care (01) ==
PROVIDERS: Emergency Provider Emergency Medicine
DX: R41.0 Disorientation, unspecified (principal)
CPT/HCPCS: 36415; 36416; 70450; 70496; 70498; 71045; 80053; 80306; 81001; 82962; 85025; 85610; 85730; 93005; 99285; J7040